=== PATIENT | female | born 1940 | race Caucasian/White ===

== ENCOUNTER 2017-08-11 02:01 | Inpatient (IN) | payer OTHER, MEDICARE, MEDICAID ==
[2017-08-11] VITALS (21 sets, daily range): BP systolic 110–188; BP diastolic 61–90; PULSE 46–80; RESP 16–18; TEMP 97.8–98.6; O2SAT 92–100
[~2017-08-11] VITALS: Ht 165.1 cm; Wt 80.9 kg
[2017-08-11] MEDS ORDERED: OMEP40CA2 PO (03:42)
[2017-08-11] MEDS ORDERED: LEVEMIR SQ ×2 (03:42)
[2017-08-11] MEDS ORDERED: NITR1SUB3 SL (03:42)
[2017-08-11] MEDS ORDERED: ALLO100T PO (03:42)
[2017-08-11] MEDS ORDERED: GLUC1000 PO (03:42)
[2017-08-11] MEDS ORDERED: FURO40TA PO (03:42)
[2017-08-11] MEDS ORDERED: SIMV10TA PO (03:42)
[2017-08-11] MEDS ORDERED: METO25TA6 PO (03:42)
[2017-08-11] MEDS ORDERED: ASPI81CH37 CHEW (03:42)
[2017-08-11 04:13] LABS: AUTOMATED NEUTROPHIL # 3.8 TH/MM3 (1.8-7.7); BASOPHIL # 0.1 TH/MM3 (0-0.2); BASOPHIL % 1.1 % (0.0-2.0); EOSINOPHIL # 0.4 TH/MM3 (0-0.4); EOSINOPHIL % 4.9 % (0.0-4.0); HEMATOCRIT 38.4 % (35.0-46.0); HEMO FLAGS DIFF FINAL; LYMPHOCYTE # 2.9 TH/MM3 (1.0-4.8); MEAN CELL VOLUME 94.8 FL (80.0-100.0); MEAN CORPUSCULAR HEMOGLOBIN 31.9 PG (27.0-34.0); MEAN CORPUSCULAR HGB CONC 33.6 % (32.0-36.0); MONO % 8.4 % (0.0-8.0); NEUT % 48.6 % (16.0-70.0); PLATELET COUNT 210 TH/MM3 (150-450); RED BLOOD COUNT 4.05 MIL/MM3 (4.00-5.30); RED CELL DISTRIBUTION WIDTH 14.1 % (11.6-17.2); WHITE BLOOD COUNT 7.9 TH/MM3 (4.0-11.0)
[2017-08-11 04:41] LABS: ALKALINE PHOSPHATASE 89 U/L (45-117); ALT (GPT) 29 U/L (10-53); TOTAL BILIRUBIN ADULT 0.3 MG/DL (0.2-1.0)
[2017-08-11] MEDS ORDERED: ASPIRIN 81 MG CHEW TAB CHEW ONE (04:45)
[2017-08-11 04:52] LABS: ANION GAP 7 MEQ/L (5-15); AST (GOT) 36 U/L (15-37); BICARBONATE 26.1 MEQ/L (21.0-32.0); BLOOD UREA NITROGEN 33 MG/DL (7-18); CHLORIDE 105 MEQ/L (98-107); GLOMERULAR FILTRATION RATE 23 ML/MIN (>89); POTASSIUM 3.7 MEQ/L (3.5-5.1); SODIUM (NA) 138 MEQ/L (136-145)
[2017-08-11] MEDS ORDERED: ACETAMINOPHEN 325 MG TAB PO PRN (05:00)
[2017-08-11] MEDS ORDERED: MORPHINE SULFATE 4 MG/ML INJ IV PUSH ONE (05:00)
[2017-08-11] MEDS ORDERED: SENNOSIDES 8.6 MG TAB PO PRN (05:00)
[2017-08-11] MEDS ORDERED: SODIUM CHLORIDE 0.9% FLUSH 10 ML FLUSH IV FLUSH PRN (05:00)
[2017-08-11] MEDS ORDERED: MORPHINE SULFATE 4 MG/ML INJ IV PUSH PRN (05:00)
[2017-08-11] MEDS ORDERED: ACETAMINOPHEN/HYDROcodone 325 MG/5 MG TAB PO PRN (05:00)
[2017-08-11] MEDS ORDERED: LACTULOSE SYRUP 20 GM/30 ML CUP PO PRN (05:00)
[2017-08-11] MEDS ORDERED: BISACODYL 10 MG SUPP RECTAL PRN (05:00)
[2017-08-11] MEDS ORDERED: ONDANSETRON HCL 4 MG/2 ML VIAL IVP PRN (05:00)
[2017-08-11] MEDS ORDERED: MAGNESIUM HYDROXIDE SUSP 30 ML CUP PO PRN (05:00)
[2017-08-11] MEDS: NITROGLYCERIN 0.4 MG SL 25 TABS/BTL SL PRN ×3 (05:01→05:28)
[2017-08-11] MEDS ORDERED: DEXTROSE 50% IN WATER 50 ML VIAL(D50) IV PUSH PRN (05:15)
[2017-08-11] MEDS ORDERED: NITROGLYCERIN 2% OINT 1 GM PACKET TOPICAL PRN (05:15)
[2017-08-11] MEDS ORDERED: GLUCAGON 1 MG/ML VIAL OTHER PRN (05:15)
--- NOTE | 2017-08-11 05:15 | HHI.HP ---
HPI Service [facility] Primary Care Physician Angel Ahumada M.D. Admission Diagnosis chest pain Diagnoses: (1) Chest pain Diagnosis: Principal (2) Elevated troponin Diagnosis: Principal (3) Renal insufficiency Diagnosis: Principal (4) HTN (hypertension) Diagnosis: Principal (5) DM (diabetes mellitus) Diagnosis: Principal Travel History International Travel<30 Days: No Contact w/Intl Traveler <30 Da: No Traveled to Known Affected Are: No History of Present Illness This is a 77-year-old female with a PMH of HTN, Hyperlipidemia, CAD s/p Cardiac Stent, h/o CVA and DM who was brought to the ER under [place] Act by Police after stating she didn't want to live anymore. Pt lives alone w/ , reportedly increasingly agitated/combative, pt states she wanted to get away and drove to the store and sat in her car for several hours. Family concerned and called 911 at which time pt stated she didn't want to live and placed under [place] Act. During that time, pt w/ complaints of substernal chest pain. No fever, chills, SOB or cough. While in ER, pt evaluated at length by ER physician, no suicidal ideation, Keating Act lifted. BP 160/77, HR 51, O2 sat 95 % on RA, Afebrile. CBC unremarkable. Creatinine 2.04, no previous labs for comparison. Troponin 0.11. EKG w/ no acute ischemia. Currently chest pain free. Review of Systems Except as stated in HPI: all other systems reviewed are Neg ROS: 14 point review of systems otherwise negative. Past Family Social History Past Medical History PMH: HTN, Hyperlipidemia, CAD s/p Cardiac Stent, h/o CVA and DM Past Surgical History PAST SURGICAL HISTORY: Cardiac Catheterization, Hysterectomy Allergies: Coded Allergies: No Known Allergies (Unverified , 08/11/17) Family History PAST FAMILY HISTORY: Reviewed. No h/o DM or CAD Social History PAST SOCIAL HISTORY: Negative for alcohol, tobacco or drugs. Physical Exam Vital Signs Vital Signs Date Time Temp Pulse Resp B/P (MAP) Pulse Ox O2 Delivery O2 Flow Rate FiO2 08/11/17 05:05 63 16 188/90 (122) 97 Room Air 08/11/17 02:58 97.8 51 16 160/77 (104) 95 Physical Exam PE: GENERAL: Pleasant elderly female in no acute distress. HEENT: PERRLA, EOMI. No scleral icterus or conjunctival pallor. No lid lag or facial droop. CARDIOVASCULAR: Regular rate and rhythm. No obvious murmurs to auscultation. No chest tenderness to palpation. RESPIRATORY: No obvious rhonchi or wheezing. Clear to auscultation. Breath sounds equal bilaterally. GASTROINTESTINAL: Abdomen soft, non-tender, nondistended. BS normal. MUSCULOSKELETAL: Extremities without clubbing, cyanosis, or edema. No obvious deformities. NEUROLOGICAL: Awake, alert and oriented x4. No focal neurologic deficits. Moving both upper and lower extremities spontaneously. Laboratory Laboratory Tests Test 08/11/17 03:55 White Blood Count 7.9 Red Blood Count 4.05 Hemoglobin 12.9 Hematocrit 38.4 Mean Corpuscular Volume 94.8 Mean Corpuscular Hemoglobin 31.9 Mean Corpuscular Hemoglobin Concent 33.6 Red Cell Distribution Width 14.1 Platelet Count 210 Mean Platelet Volume 8.6 Neutrophils (%) (Auto) 48.6 Lymphocytes (%) (Auto) 37.0 Monocytes (%) (Auto) 8.4 Eosinophils (%) (Auto) 4.9 Basophils (%) (Auto) 1.1 Neutrophils # (Auto) 3.8 Lymphocytes # (Auto) 2.9 Monocytes # (Auto) 0.7 Eosinophils # (Auto) 0.4 Basophils # (Auto) 0.1 CBC Comment DIFF FINAL Differential Comment Blood Urea Nitrogen 33 Creatinine 2.04 Random Glucose 176 Total Protein 7.6 Albumin 3.7 Calcium Level 8.6 Alkaline Phosphatase 89 Aspartate Amino Transf (AST/SGOT) 36 Alanine Aminotransferase (ALT/SGPT) 29 Total Bilirubin 0.3 Sodium Level 138 Potassium Level 3.7 Chloride Level 105 Carbon Dioxide Level 26.1 Anion Gap 7 Estimat Glomerular Filtration Rate 23 Troponin I 0.11 Result Diagram: 08/11/1735408/11/17354 Caprini VTE Risk Assessment Caprini VTE Risk Assessment: No/Low Risk (score <= 1) Caprini Risk Assessment Model Point Value = 1 Point Value = 2 Point Value = 3 Point Value = 5 Age 41-60 Minor surgery BMI > 25 kg/m2 Swollen legs Varicose veins or History of unexplained or recurrent spontaneous Oral contraceptives or hormone replacement Sepsis (< 1 month) Serious lung disease, including pneumonia (< 1 month) Abnormal pulmonary function Acute myocardial infarction Congestive heart failure (< 1 month) History of inflammatory bowel disease Medical patient at bed rest Age 61-74 Arthroscopic surgery Major open surgery (> 45 min) Laparoscopic surgery (> 45 min) Malignancy Confined to bed (> 72 hours) Immobilizing plaster cast Central venous access Age >= 75 History of VTE Family history of VTE Factor V Leiden Prothrombin [id number] Lupus anticoagulant Anticardiolipin antibodies Elevated serum homocysteine Heparin-induced thrombocytopenia Other congenital or acquired thrombophilia Stroke (< 1 month) Elective arthroplasty Hip, pelvis, or leg fracture Acute spinal cord injury (< 1 month) Prophylaxis Regimen Total Risk Factor Score Risk Level Prophylaxis Regimen 0-1 Low Early ambulation 2 Moderate Order ONE of the following: *Sequential Compression Device (SCD) *Heparin 5000 units SQ BID 3-4 Higher Order ONE of the following medications: *Heparin 5000 units SQ TID *Enoxaparin/Lovenox 40 mg SQ daily (WT < 150 kg, CrCl > 30 mL/min) *Enoxaparin/Lovenox 30 mg SQ daily (WT < 150 kg, CrCl > 10-29 mL/min) *Enoxaparin/Lovenox 30 mg SQ BID (WT < 150 kg, CrCl > 30 mL/min) AND/OR *Sequential Compression Device (SCD) 5 or more Highest Order ONE of the following medications: *Heparin 5000 units SQ TID (Preferred with Epidurals) *Enoxaparin/Lovenox 40 mg SQ daily (WT < 150 kg, CrCl > 30 mL/min) *Enoxaparin/Lovenox 30 mg SQ daily (WT < 150 kg, CrCl > 10-29 mL/min) *Enoxaparin/Lovenox 30 mg SQ BID (WT < 150 kg, CrCl > 30 mL/min) AND *Sequential Compression Device (SCD) Assessment and Plan Problem List: (1) Chest pain ICD Code: R07.9 - Chest pain, unspecified (2) Elevated troponin ICD Code: R74.8 - Abnormal levels of other serum enzymes (3) Renal insufficiency ICD Code: N28.9 - Disorder of kidney and ureter, unspecified (4) HTN (hypertension) ICD Code: I10 - Essential (primary) hypertension (5) DM (diabetes mellitus) ICD Code: E11.9 - Type 2 diabetes mellitus without complications Assessment and Plan A/P: 1. Chest Pain: acute onset of substernal chest pain, h/o CAD s/p multiple stents. Trop 0.11, EKG abnormal but no acute ischemia. Admit to [facility], check serial cardiac enzymes. Currently chest pain free, NTG/Morphine as needed. 2. Elevated Trop: Possibly related to renal dysfunction however R/o ACS, extensive cardiac history as above, Trop 0.11, will trend. Resume home ASA, Statin, Metoprolol. Check CXR. 3. Renal Insufficiency: Creatinine 2.04, no previous labs for comparison. Check U/a, IVF for hydration, repeat labs in am. Hold Lasix for now. 4. HTN: BP 160's, will monitor, resume home medications. 5. DM: Sliding scale w/ Accu-Cheks. Hold Metformin in light of renal insufficiency. 6. DVT Prophylaxis: Heparin sq 7. Social work for d/c planning as needed. 8. Case discussed w/ ER physician at length. Carla Nagel MD Aug 11, 2017 05:15
[2017-08-11] MEDS: SODIUM CHLOR 0.9% 1000 ML INJ 1,000 ML IV SCH ×3 (05:28→16:52)
--- NOTE | 2017-08-11 05:49 | RADRPT ---
EXAM DATE/TIME: 08/11/2017 05:08 [place] COMPARISON: No previous studies available for comparison. INDICATIONS : Chest pain. MEDICAL HISTORY : Diabetes mellitus type II. Hypertension Stroke. SURGICAL HISTORY : Right breast, tumor removal. ENCOUNTER: Initial ACUITY: 1 day PAIN SCORE: 7/10 LOCATION: Left chest FINDINGS: A single view of the chest demonstrates cardiomegaly. Minimal basilar atelectasis. No effusion. No pn eumothorax. Elevated right hemidiaphragm. CONCLUSION: 1. Cardiomegaly with minimal basilar atelectasis. Elevated right hemidiaphragm. Jun Garduno MD on August 11, 2017 at 5:45 Board Certified Radiologist. This report was verified electronically.
--- NOTE | 2017-08-11 07:05 | PD ---
HPI Chief Complaint: Psychiatric Symptoms Time Seen by Provider: 02:11 Travel History International Travel<30 days: No Contact w/Intl Traveler<30days: No Traveled to known affect area: No History of Present Illness HPI This is a 77-year-old female who has a history of coronary artery disease with multiple stents who presents to the emergency department under a [place] act. The patient's recently had a CABG and he has been having a very difficult time recovering. She says ever since then he's been a very angry man , he's been very difficult to interact with then he's very reactive and agitated at home. She says she got fed up with it today and she decided to leave. She went shopping and went to get something to eat and then decided to sleep in her car. After 3 hours her called the police and the police came to her car and picked her up. She did tell the police that she didn't want to live anymore. By that she mentioned she didn't want to live with her . She feels very frustrated with her situation. She says she doesn't want to kill herself, she loves her children and her grandchildren and she is looking forward to her grandchildren graduating. She just is very frustrated with the situation with her . She was initially taken to [facility]. At [facility] she developed chest discomfort in the center of her chest, constant, moderate severity with no associated nausea or vomiting. She does have a long history of heart disease. She says the chest pain persists in the emergency department here [facility] Past Medical History Cardiac Catheterization: Yes (5 stents) High Cholesterol: Yes Cerebrovascular Accident: Yes Diabetes: Yes Patient Takes Glucophage: No Hypertension: Yes Kidney Stones: Yes Myocardial Infarction: Yes Past Surgical History Hysterectomy: Yes Social History Alcohol Use: No Tobacco Use: No Substance Use: No Allergies-Medications (Allergen,Severity, Reaction): Coded Allergies: No Known Allergies (Unverified , 08/11/17) Reported Meds & Prescriptions Reported Meds & Active Scripts Active Reported Allopurinol 100 Mg Tab 100 Mg PO DAILY Aspirin Low Dose (Aspirin) 81 Mg Chew 81 Mg CHEW DAILY Omeprazole 40 Mg Cap 40 Mg PO DAILY Furosemide 40 Mg Tab 40 Mg PO DAILY Glucophage (Metformin HCl) 1,000 Mg Tab 1,000 Mg PO DAILY With a meal Levemir Inj (Insulin Detemir) 1,000 unit/ 10 ML Vial 35 Units SQ HS Do not mix with any other Insulin. Levemir Inj (Insulin Detemir) 1,000 unit/ 10 ML Vial 50 Units SQ DAILYAC Do not mix with any other Insulin. Metoprolol Succinate ER 24 HR (Metoprolol Succinate) 25 Mg Tab 12.5 Mg PO DAILY Nitroglycerin SL (Nitroglycerin) 0.4 Mg Subl 0.4 Mg SL DIRECTED PRN ONE TABLET UNDER THE TONGUE NEEDED FOR CHEST PAIN, MAY REPEAT EVERY FIVE MINUTES FOR A TOTAL OF 3 DOSES OR CALL 911 IF NO RELIEF Simvastatin 10 Mg Tab 10 Mg PO DAILY Review of Systems Except as stated in HPI: all other systems reviewed are Neg Physical Exam Narrative GENERAL:Well appearing, no acute distress SKIN: Focused skin assessment warm and dry. HEAD: Atraumatic. Normocephalic. EYES: Pupils equal and round. No injection or drainage. ENT: Moist mucous membranes NECK: Trachea midline. CARDIOVASCULAR: Regular rate and rhythm. No murmur appreciated. RESPIRATORY: Clear to auscultation. Breath sounds equal bilaterally. GASTROINTESTINAL: Abdomen soft, non-tender, nondistended. MUSCULOSKELETAL: No obvious deformities. NEUROLOGICAL: Awake and alert. No obvious cranial nerve deficits. Moving all extremities. PSYCHIATRIC: Appropriate mood and affect; insight and judgment normal. Data Data Last Documented VS Vital Signs Date Time Temp Pulse Resp B/P (MAP) Pulse Ox O2 Delivery O2 Flow Rate FiO2 08/11/17 02:58 97.8 51 16 160/77 (104) 95 Orders Orders Complete Blood Count With Diff (08/11/17 02:33) Comprehensive Metabolic Panel (08/11/17 02:33) Electrocardiogram (08/11/17 ) Troponin I (08/11/17 02:33) ^ Insert Iv (08/11/17 02:33) Aspirin Chew (Aspirin Chew) (08/11/17 04:45) Morphine Inj (Morphine Inj) (08/11/17 05:00) Nitroglycerin Sl (Nitrostat Sl) (08/11/17 05:00) Admit Order (Ed Use Only) (08/11/17 05:01) Chest, Single Ap (08/11/17 ) Urinalysis - C+S If Indicated (08/11/17 04:57) Place In Observation (08/11/17 ) Vital Signs (Adult) Q4H (08/11/17 04:57) Activity Oob With Assistance (08/11/17 04:57) Control Room Supervisor / Telemetry .CONTINUOUS (08/11/17 04:57) Intake + Output SOULEYMANE.QSHIFT (08/11/17 04:57) Diet Heart Healthy (08/11/17 Breakfast) Sodium Chlor 0.9% 1000 Ml Inj (Ns 1000 M (08/11/17 04:57) Sodium Chloride 0.9% Flush (Ns Flush) (08/11/17 05:00) Sodium Chloride 0.9% Flush (Ns Flush) (08/11/17 09:00) Ondansetron Inj (Zofran Inj) (08/11/17 05:00) Comprehensive Metabolic Panel (08/12/17 06:00) Complete Blood Count With Diff (08/12/17 06:00) Troponin I (08/11/17 10:00) Troponin I (08/11/17 16:00) Heparin Inj (Heparin Inj) (08/11/17 09:00) Acetaminophen (Tylenol) (08/11/17 05:00) Acetamin-Hydrocod 325-5 Mg ([place] 5-325 (08/11/17 05:00) Morphine Inj (Morphine Inj) (08/11/17 05:00) Docusate Sodium-Senna (Alice-Colace) (08/11/17 09:00) Magnesium Hydroxide Liq (Milk Of Magnesi (08/11/17 05:00) Sennosides (Senokot) (08/11/17 05:00) Bisacodyl Supp (Dulcolax Supp) (08/11/17 05:00) Lactulose Liq (Lactulose Liq) (08/11/17 05:00) Aspirin Ec (Ecotrin Ec) (08/11/17 09:00) Pravastatin (Pravachol) (08/11/17 09:00) Metoprolol Tartrate (Lopressor) (08/11/17 09:00) Labs Laboratory Tests Test 08/11/17 03:55 White Blood Count 7.9 TH/MM3 Red Blood Count 4.05 MIL/MM3 Hemoglobin 12.9 GM/DL Hematocrit 38.4 % Mean Corpuscular Volume 94.8 FL Mean Corpuscular Hemoglobin 31.9 PG Mean Corpuscular Hemoglobin Concent 33.6 % Red Cell Distribution Width 14.1 % Platelet Count 210 TH/MM3 Mean Platelet Volume 8.6 FL Neutrophils (%) (Auto) 48.6 % Lymphocytes (%) (Auto) 37.0 % Monocytes (%) (Auto) 8.4 % Eosinophils (%) (Auto) 4.9 % Basophils (%) (Auto) 1.1 % Neutrophils # (Auto) 3.8 TH/MM3 Lymphocytes # (Auto) 2.9 TH/MM3 Monocytes # (Auto) 0.7 TH/MM3 Eosinophils # (Auto) 0.4 TH/MM3 Basophils # (Auto) 0.1 TH/MM3 CBC Comment DIFF FINAL Differential Comment Blood Urea Nitrogen 33 MG/DL Creatinine 2.04 MG/DL Random Glucose 176 MG/DL Total Protein 7.6 GM/DL Albumin 3.7 GM/DL Calcium Level 8.6 MG/DL Alkaline Phosphatase 89 U/L Aspartate Amino Transf (AST/SGOT) 36 U/L Alanine Aminotransferase (ALT/SGPT) 29 U/L Total Bilirubin 0.3 MG/DL Sodium Level 138 MEQ/L Potassium Level 3.7 MEQ/L Chloride Level 105 MEQ/L Carbon Dioxide Level 26.1 MEQ/L Anion Gap 7 MEQ/L Estimat Glomerular Filtration Rate 23 ML/MIN Troponin I 0.11 NG/ML [facility] Medical Decision Making Medical Screen Exam Complete: Yes Emergency Medical Condition: Yes Interpretation(s) Afebrile, no tachycardia, hypertensive No leukocytosis Renal insufficiency Troponin is 0.11 EKG: Normal sinus rhythm, T-wave inversions in the lateral leads, type I second- degree AV block Chest x-ray: No acute process Differential Diagnosis Depression, adjustment reaction, acute coronary syndrome, stress cardiomyopathy Narrative Course This is a 77-year-old female who presents to the emergency department brought in under a [place] act by police because she was in her car. She reports that everything surrounding today was situational and she's trying to get away from her because he's been increasingly angry and they been fighting a lot. They've been together for 60 years and she says the last couple months ever since he had his heart surgery has been very hard on her. She said she spoke to her daughter who is in the [place] and she's traveling here today August 11 and will arrive in [place] at noon. I spoke to the patient's son who confirms this story and thinks his sister would be happy to belt picker their. He doesn't think his mother is suicidal, and thinks she just was trying to get away from her because she is frustrated and is having a hard time taking care of him. I don't think a Keating act on this patient is appropriate. I don't think she is depressed or suicidal and I think this all reflects an adjustment reaction. I lifted the patient's Keating act. Patient has a long history of coronary artery disease. She started to complain of chest pain at [facility] and then here. EKG does demonstrate some ischemic changes and I don't have an old comparison. Labs are obtained and her troponin is 0.11. She also has some renal insufficiency which may be the etiology but I think it's reasonable to observe the patient for serial cardiac enzymes given her long standing history and multiple stents. Physician Communication Physician Communication Discussed with Dr. Moerira Diagnosis Primary Impression: Chest pain Qualified Codes: R07.9 - Chest pain, unspecified Additional Impression: Adjustment reaction Qualified Codes: F43.20 - Adjustment disorder, unspecified Admitting Information Admitting Physician Requests: Mimi Darling MD Aug 11, 2017 07:05
--- NOTE | 2017-08-11 08:19 | EKG ---
Date Performed: 08/11/2017 Time Performed: 03:46:42 PTAGE: 77 years EKG: SINUS BRADYCARDIA WITH 2ND DEGREE AV BLOCK, MOBITZ TYPE I (WENCKEBACH) LEFT VENTRICULAR HYP ERTROPHY AND ST-T CHANGE ABNORMAL ECG NO PREVIOUS TRACING DOCTOR: Salazar Watson Interpretating Date/Time 08/11/2017 08:18:12
[2017-08-11] MEDS: INSULIN ASPART SUPPLEMENTAL SCALE SQ SCH ×4 (08:47→21:00)
[2017-08-11] MEDS ORDERED: METOPROLOL TARTRATE 25 MG TAB PO SCH (09:00)
[2017-08-11] MEDS ORDERED: HEPARIN SODIUM - SQ 10,000 UNITS/ML VIAL SQ SCH (09:00)
[2017-08-11] MEDS: SODIUM CHLORIDE 0.9% FLUSH 10 ML FLUSH IV FLUSH SCH ×2 (09:00→21:23)
[2017-08-11] MEDS ORDERED: [UNRECOGNIZED DRUG - OTHER] IV ONE (10:00)
[2017-08-11] MEDS: INSULIN DETEMIR 100 UNITS/ML VIAL SQ SCH ×2 (10:10→21:23)
[2017-08-11] MEDS: PANTOPRAZOLE SOD 40 MG DELAYED RELEASE TAB PO SCH (10:11)
[2017-08-11] MEDS: DOCUSATE SODIUM 50 MG/SENNA 8.6 MG TAB PO SCH ×2 (10:11→21:23)
[2017-08-11] MEDS: ASPIRIN EC 81 MG TABEC PO SCH (10:11)
[2017-08-11] MEDS: PRAVASTATIN SOD 40 MG TAB PO SCH (10:11)
[2017-08-11 11:24] LABS: HEMATOCRIT 37.3 % (35.0-46.0); MEAN CELL VOLUME 95.3 FL (80.0-100.0); MEAN CORPUSCULAR HEMOGLOBIN 32.5 PG (27.0-34.0); MEAN CORPUSCULAR HGB CONC 34.1 % (32.0-36.0); PLATELET COUNT 183 TH/MM3 (150-450); RED BLOOD COUNT 3.92 MIL/MM3 (4.00-5.30); REVIEW FLAG FINAL; WHITE BLOOD COUNT 6.6 TH/MM3 (4.0-11.0)
[2017-08-11 11:36] LABS: APTT (PATIENT) 25.5 SEC (24.3-30.1); PROTHROMBIN TIME - PATIENT 11.1 SEC (9.8-11.6)
[2017-08-11] MEDS: HEPARIN 25,000 UNITS/D5W 250ML IV PRN (12:19)
--- NOTE | 2017-08-11 13:27 | MB ---
cc: MUSHTAQ JOHN MD DATE OF CONSULTATION 08/11/17 REASON FOR CONSULTATION Chest pain with indeterminate troponin. HISTORY OF PRESENT ILLNESS The patient is a very pleasant 68-year-old woman with a history of complex coronary disease status post multiple prior stents. The patient lives with her and apparently her home situation has been very rough as the just underwent CABG and has been agitated and combative. The patient's initial labs were notable for a creatinine of 2.04 and a troponin of 0.11. She says she has been having intermittent chest pain for which she uses sublingual nitroglycerin initially with some relief, though the last episode took three nitroglycerin without relief and thus she presented to the emergency department. The patient is a little bit vague and I try to get a sense on whether she was really having significant chest pain or was distressed at being at home with her agitated . The patient has trouble giving a straight answer on this question. PAST MEDICAL HISTORY 1. Coronary artery disease status post five stents (per patient). 2. CVA. 3. Diabetes. 4. Hypertension. 5. Hyperlipidemia. 6. Obesity. MEDICATIONS Current medications: 1. Insulin. 2. Aspirin 81 milligrams daily. 3. Pravachol 40 milligrams. 4. Protonix 40 milligrams daily. ALLERGIES NO KNOWN DRUG ALLERGIES. PHYSICAL EXAMINATION VITAL SIGNS: Afebrile, pulse 51, blood pressure 119/66 down from 188/90, respiratory rate 16, satting 92 on room air. GENERAL: Pleasant obese woman in no distress. NECK: No JVD. LUNGS: Clear to auscultation bilaterally. CARDIOVASCULAR: Regular rate, rhythm. No murmurs appreciated. ABDOMEN: Benign. EXTREMITIES: No edema. LABORATORY DATA Sodium 138, potassium 3.7, chloride 105, bicarb 26.1, BUN 33, creatinine 2.04, glucose 176, troponin is 0.11, white count 7.9, hematocrit 38.4, platelets 210. CARDIOLOGY STUDIES EKG shows sinus rhythm with a second-degree type 1 AV block and anterolateral T-wave changes consistent with ischemia. IMPRESSION 1. Chest pain with elevated troponin. This is a difficult case as her troponin may simply be due to her poor renal function. However, her EKG is abnormal and she does have notable coronary disease. I am also reluctant to have her proceed directly to cardiac catheterization given her decreased renal function. She is currently getting hydrated. I think the best course of action is to finis her rule out of [place] as she is clinically stable without any current chest pain. Depending on the rest of her cardiac enzymes I would have her undergo either a nuclear stress test or potentially have her undergo a higher risk cardiac catheterization. 2. Thus her plan will depend on her lab work both on her cardiac enzymes and on how her renal function changes with hydration. Thank you again for the opportunity to participate in this patient's care. MD PRAVEEN Harris/KRISTINA /9:57 AM /1:11 PM
--- NOTE | 2017-08-11 15:09 | HHI.PR ---
Subjective Remarks Follow up for chest pain. The patient reports her chest pain has improved today , denies any currently but did have some intermittent squeezing/tight left anterior chest pains earlier this morning. Denies any shortness of breath or palpitations. Patient admits she has been under a lot of stress lately. Seen with multiple family members at bedside. The patient reports she's had 4 heart attacks, her last cardiac catheterization was back in 2008 and she has a total of 5 stents. Her procedures were mostly all done in [place]. 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 She did have a nuclear stress test done this past December [address] Dawood Calixto at [facility] in [place], [place]. The patient also reports that she has bad kidneys because she developed frequent kidney stones, and just recently passed a stone last week. She was also on a 4 day course of Levaquin because of cystitis, completed course earlier this week. Objective Vitals Vital Signs Date Time Temp Pulse Resp B/P (MAP) Pulse Ox O2 Delivery O2 Flow Rate FiO2 08/11/17 14:00 80 08/11/17 13:00 66 08/11/17 12:00 50 08/11/17 11:00 51 08/11/17 10:00 63 08/11/17 09:11 51 08/11/17 08:12 48 08/11/17 08:12 64 18 154/89 (110) 100 08/11/17 06:00 56 16 119/66 (83) 92 Room Air 08/11/17 05:26 46 110/61 (77) 95 Room Air 08/11/17 05:05 63 16 188/90 (122) 97 Room Air 08/11/17 02:58 97.8 51 16 160/77 (104) 95 Result Diagram: 08/11/17 1027 08/11/17 0355 Imaging Last Impressions Chest X-Ray 08/11/17 0000 Signed Impressions: Service Date/Time: Friday, August 11, 2017 05:08 - CONCLUSION: 1. Cardiomegaly with minimal basilar atelectasis. Elevated right hemidiaphragm. Jun Garduno MD Objective Remarks GENERAL: Well-nourished, well-developed pleasant female patient in [facility]. SKIN: Warm and dry. No rash. HEENT: Normocephalic. Atraumatic.Pupils equal and round. Mucous membranes pink and moist. CARDIOVASCULAR: Regular rate and rhythm. S1, S2 noted. No murmur appreciated. RESPIRATORY: No accessory muscle use. Clear to auscultation. Breath sounds equal bilaterally. GASTROINTESTINAL: Abdomen soft, non-tender, nondistended. Normoactive bowel sounds x4. MUSCULOSKELETAL: No obvious deformities. Extremities without clubbing, cyanosis , or edema. NEUROLOGICAL: Awake and alert. No obvious cranial nerve deficits. Motor grossly within normal limits. Normal speech. PSYCHIATRIC: Appropriate mood and affect; insight and judgment normal. Medications and IVs Current Medications Medications (Trade) Dose Ordered Sig/Barrett Route Start Time Stop Time Status Last Admin (Nitrostat Sl) 0.4 mg Q5M PRN SL 08/11/17 05:00 08/11/17 05:28 Sodium Chloride 1,000 ml @ 100 mls/hr Q10H IV 08/11/17 04:57 08/11/17 05:28 (NS Flush) 2 ml UNSCH PRN IV FLUSH 08/11/17 05:00 (NS Flush) 2 ml BID IV FLUSH 08/11/17 09:00 (Zofran Inj) 4 mg Q6H PRN IVP 08/11/17 05:00 (Tylenol) 650 mg Q6H PRN PO 08/11/17 05:00 ([place] 5-325 Mg) 1 tab Q4H PRN PO 08/11/17 05:00 (Morphine Inj) 2 mg Q3H PRN IV PUSH 08/11/17 05:00 (Alice-Colace) 1 tab BID PO 08/11/17 09:00 08/11/17 10:11 (Milk Of Magnesia Liq) 30 ml Q12H PRN PO 08/11/17 05:00 (Senokot) 17.2 mg Q12H PRN PO 08/11/17 05:00 (Dulcolax Supp) 10 mg DAILY PRN RECTAL 08/11/17 05:00 (Lactulose Liq) 30 ml DAILY PRN PO 08/11/17 05:00 (Ecotrin Ec) 81 mg DAILY PO 08/11/17 09:00 08/11/17 10:11 (Pravachol) 40 mg DAILY PO 08/11/17 09:00 08/11/17 10:11 (D50w (Vial) Inj) 50 ml UNSCH PRN IV PUSH 08/11/17 05:15 (Glucagon Inj) 1 mg UNSCH PRN OTHER 08/11/17 05:15 (NovoLOG SUPPLEMENTAL SCALE) 1 ACHS SLIDING SCALE SQ 08/11/17 08:00 08/11/17 12:00 (Levemir Inj) 35 units HS SQ 08/11/17 21:00 (Levemir Inj) 50 units DAILYAC SQ 08/11/17 08:00 08/11/17 10:10 (Protonix) 40 mg DAILY PO 08/11/17 09:00 08/11/17 10:11 (Nitroglycerin 2% Oint) 0.5 inch Q6HR PRN TOPICAL 08/11/17 05:15 (Heparin Inj) 5,000 units UNSCH PRN IV 08/11/17 16:00 (Heparin Inj) 2,500 units UNSCH PRN IV 08/11/17 16:00 Heparin Sodium/ Dextrose 250 ml @ 9 mls/hr TITRATE PRN IV 08/11/17 12:00 08/11/17 12:19 A/P Problem List: (1) Chest pain ICD Code: R07.9 - Chest pain, unspecified (2) Elevated troponin ICD Code: R74.8 - Abnormal levels of other serum enzymes (3) Renal insufficiency ICD Code: N28.9 - Disorder of kidney and ureter, unspecified (4) HTN (hypertension) ICD Code: I10 - Essential (primary) hypertension (5) DM (diabetes mellitus) ICD Code: E11.9 - Type 2 diabetes mellitus without complications Assessment and Plan 77-year-old female with a PMH of HTN, Hyperlipidemia, CAD s/p Cardiac Stent, h/ o CVA and DM who was brought to the ER under [place] by Police after stating she didn't want to live anymore. Pt lives alone w/ , reportedly increasingly agitated/combative, pt states she wanted to get away and drove to the store and sat in her car for several hours. Family concerned and called 911 at which time pt stated she didn't want to live and placed under [place], taken to [facility], and while there, complained of substernal chest pain. While in ER, pt evaluated at length by ER physician, no suicidal ideation, [place] lifted. Currently chest pain free. Chest Pain with Elevated Troponin: acute onset of substernal chest pain, h/o CAD s/p multiple stents. Trop 0.11, however could be due to renal dysfunction. EKG reviewed, shows AV block and anterolateral Twave changes, possible ischemia. CXR images reviewed, shows cardiomegaly, otherwise unremarkable. Admitted to [facility]. -Check serial cardiac enzymes and EKGs. -Continue nitro and IV morphine prn -Continue patient's home aspirin, statin; held patient's metoprolol with bradycardia -Check lipid panel and A1c -Start on heparin drip per cardiology -Consult cardiology, appreciate recommendations -Will try to obtain records of recent nuclear stress test in at [facility]. Renal Insufficiency: Creatinine 2.04, no previous labs for comparison. Check U /a. Give IVF for hydration, repeat labs in am. Hold Lasix for now. HTN: BP 160's, will monitor, resume home medications. DM: Sliding scale w/ Accu-Cheks. Continue patient's insulin. Hold Metformin in light of renal insufficiency. UTI: UA with +nitrites/leuks/WBCs/bacteria. Patient reports recently being on levaquin for cystitis. Will start on IV Rocephin for now and monitor urine culture. DVT Prophylaxis: on Heparin drip Problem Qualifiers (1) Chest pain: Qualified Codes: R07.9 - Chest pain, unspecified Loan Knapp PA-C Aug 11, 2017 15:09
[2017-08-11] MEDS ORDERED: HEPARIN SODIUM - IV 10,000 UNITS/10 ML VIAL IV PRN ×2 (16:00)
[2017-08-11 16:28] LABS: BACTERIA, URINE MOD /hpf; BLOOD, URINE SMALL (NEG); COMMENT (UR) CULTURE INDICATED; CULTURE IF INDICATED CULTURE INDICATED; GLUCOSE,URINE 300 mg/dL (NEG); KETONE, URINE NEG (NEG); NITRITE,URINE POS (NEG); PH, URINE 6.5 (5.0-8.5); SQUAMOUS EPITHELIAL CELL URINE 5 /hpf (0-5); URINE COLOR LIGHT-YELLOW (YELLW/STRAW)
[2017-08-11] MEDS: cefTRIAXone INJ 1,000 MG in SODIUM CHLORIDE 0.9% INJ 100 ML IV SCH (18:02)
[2017-08-11 18:57] LABS: APTT (PATIENT) 32.7 SEC (24.3-30.1)
[2017-08-12] VITALS (26 sets, daily range): BP systolic 124–159; BP diastolic 74–85; PULSE 40–78; RESP 16–20; TEMP 97.9–98.8; O2SAT 96–98
--- NOTE | 2017-08-12 01:19 | EKG ---
Date Performed: 08/11/2017 Time Performed: 16:03:46 PTAGE: 77 years EKG: Sinus bradycardia with second degree AV block Type I Ant/septal and lateral T wave changes may be due to myocardial ischemia Abnormal ECG PREVIOUS TRACING : 08/11/2017 09.19 No significant change from previous tracing noted. DOCTOR: Salazar Watson Interpretating Date/Time 08/12/2017 01:18:46
--- NOTE | 2017-08-12 01:26 | EKG ---
Date Performed: 08/11/2017 Time Performed: 09:19:50 PTAGE: 77 years EKG: Sinus bradycardia with second degree AV block Type I Prolonged QT interval Extensive ST-T c hanges may be due to myocardial ischemia Abnormal ECG PREVIOUS TRACING : 08/11/2017 03.46 No significant change from previous tracing noted. DOCTOR: Salazar Watson Interpretating Date/Time 08/12/2017 01:25:03
[2017-08-12 02:00] LABS: AUTOMATED NEUTROPHIL # 3.4 TH/MM3 (1.8-7.7); BASOPHIL # 0.1 TH/MM3 (0-0.2); EOSINOPHIL # 0.4 TH/MM3 (0-0.4); EOSINOPHIL % 4.9 % (0.0-4.0); HEMATOCRIT 37.2 % (35.0-46.0); HEMO FLAGS DIFF FINAL; LYMPH % 39.3 % (9.0-44.0); LYMPHOCYTE # 2.9 TH/MM3 (1.0-4.8); MEAN CELL VOLUME 95.3 FL (80.0-100.0); MEAN CORPUSCULAR HEMOGLOBIN 31.6 PG (27.0-34.0); MEAN CORPUSCULAR HGB CONC 33.2 % (32.0-36.0); MONO % 7.9 % (0.0-8.0); NEUT % 46.9 % (16.0-70.0); PLATELET COUNT 186 TH/MM3 (150-450); WHITE BLOOD COUNT 7.3 TH/MM3 (4.0-11.0)
[2017-08-12 02:15] LABS: APTT (PATIENT) 53.9 SEC (24.3-30.1)
[2017-08-12 02:23] LABS: ANION GAP 5 MEQ/L (5-15); AST (GOT) 28 U/L (15-37); BICARBONATE 29.5 MEQ/L (21.0-32.0); BLOOD UREA NITROGEN 28 MG/DL (7-18); CHLORIDE 109 MEQ/L (98-107); GLOMERULAR FILTRATION RATE 31 ML/MIN (>89); POTASSIUM 4.1 MEQ/L (3.5-5.1); SODIUM (NA) 143 MEQ/L (136-145)
[2017-08-12 02:31] LABS: ALKALINE PHOSPHATASE 72 U/L (45-117); ALT (GPT) 24 U/L (10-53); TOTAL BILIRUBIN ADULT 0.3 MG/DL (0.2-1.0)
[2017-08-12 07:50] LABS: APTT (PATIENT) 68.1 SEC (24.3-30.1)
[2017-08-12] MEDS: INSULIN ASPART SUPPLEMENTAL SCALE SQ SCH ×4 (08:00→23:38)
[2017-08-12] MEDS: INSULIN DETEMIR 100 UNITS/ML VIAL SQ SCH ×2 (08:00→23:37)
[2017-08-12] MEDS: PANTOPRAZOLE SOD 40 MG DELAYED RELEASE TAB PO SCH (09:50)
[2017-08-12] MEDS: DOCUSATE SODIUM 50 MG/SENNA 8.6 MG TAB PO SCH ×2 (09:50→21:00)
[2017-08-12] MEDS: PRAVASTATIN SOD 40 MG TAB PO SCH (09:51)
[2017-08-12] MEDS: SODIUM CHLORIDE 0.9% FLUSH 10 ML FLUSH IV FLUSH SCH ×2 (09:51→21:46)
[2017-08-12] MEDS: ASPIRIN EC 81 MG TABEC PO SCH (09:51)
--- NOTE | 2017-08-12 10:45 | PD.CARD.PN ---
Subjective Subjective Remarks Pt doing well, no further chest pain. Objective Medications Administered Medications Medications (Trade) Dose Ordered Sig/Barrett Route PRN Reason Start Time Stop Time Status Last Admin Dose Admin Nitroglycerin (Nitrostat Sl) 0.4 mg Q5M PRN SL CHEST PAIN 08/11/17 05:00 08/11/17 05:28 Sodium Chloride 1,000 ml @ 100 mls/hr Q10H IV 08/11/17 04:57 08/11/17 16:52 Sodium Chloride (NS Flush) 2 ml BID IV FLUSH 08/11/17 09:00 08/12/17 09:51 Senna/Docusate Sodium (Alice-Colace) 1 tab BID PO 08/11/17 09:00 08/12/17 09:50 Aspirin (Ecotrin Ec) 81 mg DAILY PO 08/11/17 09:00 08/12/17 09:51 Pravastatin Sodium (Pravachol) 40 mg DAILY PO 08/11/17 09:00 08/12/17 09:51 Insulin Aspart (NovoLOG SUPPLEMENTAL SCALE) 1 ACHS SLIDING SCALE SQ 08/11/17 08:00 08/11/17 21:00 Insulin Detemir (Levemir Inj) 35 units HS SQ 08/11/17 21:00 08/11/17 21:23 Insulin Detemir (Levemir Inj) 50 units DAILYAC SQ 08/11/17 08:00 08/12/17 08:00 Pantoprazole Sodium (Protonix) 40 mg DAILY PO 08/11/17 09:00 08/12/17 09:50 Heparin Sodium/ Dextrose 250 ml @ 9 mls/hr TITRATE PRN IV Ordered parameters 08/11/17 12:00 08/11/17 12:19 Ceftriaxone Sodium 1000 mg/ Sodium Chloride 100 ml @ 200 mls/hr Q24H IV 08/11/17 18:00 08/11/17 18:02 Vital Signs / I&O Vital Signs Date Time Temp Pulse Resp B/P (MAP) Pulse Ox O2 Delivery O2 Flow Rate FiO2 08/12/17 08:00 42 08/12/17 08:00 97.9 46 20 146/74 (98) 98 08/12/17 07:00 53 08/12/17 06:30 56 08/12/17 05:23 51 08/12/17 04:03 46 08/12/17 03:49 98.0 52 16 124/74 (91) 98 08/12/17 03:49 53 08/12/17 02:11 50 08/12/17 01:19 45 08/12/17 00:05 52 08/11/17 23:58 51 08/11/17 23:55 98.5 59 17 140/66 (90) 97 08/11/17 22:00 54 08/11/17 21:00 56 08/11/17 20:00 64 08/11/17 19:20 63 08/11/17 19:20 98.6 63 18 132/74 (93) 95 08/11/17 18:00 58 08/11/17 17:00 65 08/11/17 16:00 78 08/11/17 15:00 98.0 69 16 154/82 (106) 97 08/11/17 15:00 71 08/11/17 14:00 80 08/11/17 13:00 66 08/11/17 12:00 50 08/11/17 11:00 51 08/11/17 11:00 98.2 62 17 150/90 (110) 96 I/O 08/11/17 08/11/17 08/11/17 08/12/17 08/12/17 08/12/17 07:00 15:00 23:00 07:00 15:00 23:00 Intake Total 2074 ml 1071 ml Output Total 1700 ml 500 ml Balance 374 ml 571 ml Intake Oral 720 ml 240 ml IV Total 1354 ml 831 ml Output Urine Total 1700 ml 500 ml Physical Exam GENERAL: This is a well-nourished, well-developed patient, in no apparent distress. CARDIOVASCULAR: Regular rate and rhythm without murmurs, gallops, or rubs. RESPIRATORY: Clear to auscultation. Breath sounds equal bilaterally. No wheezes , rales, or rhonchi. GASTROINTESTINAL: Abdomen soft, non-tender, nondistended. Normal active bowel sounds MUSCULOSKELETAL: Extremities without clubbing, cyanosis, or edema. NEURO: Alert & Oriented x4 to person, place, time, situation. Moves all ext x4 Laboratory Laboratory Tests Test 08/11/17 13:10 08/11/17 16:00 08/11/17 18:07 08/12/17 01:47 Troponin I 0.14 NG/ML 0.18 NG/ML Urine Color LIGHT-YELLOW Urine Turbidity CLOUDY Urine pH 6.5 Urine Specific [place] 1.016 Urine Protein TRACE mg/dL Urine Glucose (UA) 300 mg/dL Urine Ketones NEG mg/dL Urine Occult Blood SMALL Urine Nitrite POS Urine Bilirubin NEG Urine Urobilinogen LESS THAN 2.0 MG/DL Urine Leukocyte Esterase LARGE Urine RBC 3 /hpf Urine WBC /hpf Urine WBC Clumps MANY Urine Squamous Epithelial Cells 5 /hpf Urine Bacteria MOD /hpf Microscopic Urinalysis Comment CULTURE INDICATED Activated Partial Thromboplast Time 32.7 SEC 53.9 SEC White Blood Count 7.3 TH/MM3 Red Blood Count 3.90 MIL/MM3 Hemoglobin 12.3 GM/DL Hematocrit 37.2 % Mean Corpuscular Volume 95.3 FL Mean Corpuscular Hemoglobin 31.6 PG Mean Corpuscular Hemoglobin Concent 33.2 % Red Cell Distribution Width 14.0 % Platelet Count 186 TH/MM3 Mean Platelet Volume 8.7 FL Neutrophils (%) (Auto) 46.9 % Lymphocytes (%) (Auto) 39.3 % Monocytes (%) (Auto) 7.9 % Eosinophils (%) (Auto) 4.9 % Basophils (%) (Auto) 1.0 % Neutrophils # (Auto) 3.4 TH/MM3 Lymphocytes # (Auto) 2.9 TH/MM3 Monocytes # (Auto) 0.6 TH/MM3 Eosinophils # (Auto) 0.4 TH/MM3 Basophils # (Auto) 0.1 TH/MM3 CBC Comment DIFF FINAL Differential Comment Blood Urea Nitrogen 28 MG/DL Creatinine 1.60 MG/DL Random Glucose 158 MG/DL Total Protein 6.7 GM/DL Albumin 3.1 GM/DL Calcium Level 8.2 MG/DL Alkaline Phosphatase 72 U/L Aspartate Amino Transf (AST/SGOT) 28 U/L Alanine Aminotransferase (ALT/SGPT) 24 U/L Total Bilirubin 0.3 MG/DL Sodium Level 143 MEQ/L Potassium Level 4.1 MEQ/L Chloride Level 109 MEQ/L Carbon Dioxide Level 29.5 MEQ/L Anion Gap 5 MEQ/L Estimat Glomerular Filtration Rate 31 ML/MIN Test 08/12/17 07:17 Activated Partial Thromboplast Time 68.1 SEC Imaging Last Impressions Chest X-Ray 08/11/17 0000 Signed Impressions: Service Date/Time: Friday, August 11, 2017 05:08 - CONCLUSION: 1. Cardiomegaly with minimal basilar atelectasis. Elevated right hemidiaphragm. Jun Garduno MD Assessment and Plan Problem List: (1) NSTEMI (non-ST elevation myocardial infarction) ICD Codes: I21.4 - Non-ST elevation (NSTEMI) myocardial infarction Plan: Troponin increased while Cr. decreased making me more suspicious of a true NSTEMI; continue medical mgt for now, Dr. Watson will evaluate for possible cath. (2) Chest pain ICD Codes: R07.9 - Chest pain, unspecified Plan: Improved currently (3) Renal insufficiency ICD Codes: N28.9 - Disorder of kidney and ureter, unspecified Plan: Improving w/ hydration, I did discuss risks of cath w/ regards to renal fxn w/ pt and daughter, they understand; continue hydration. (4) CAD (coronary artery disease) ICD Codes: I25.10 - Atherosclerotic heart disease of [place] coronary artery without angina pectoris Plan: Hx of 5 stents per pt, last cath reportedly (5) Bradycardia ICD Codes: R00.1 - Bradycardia, unspecified Plan: asymptomatic, dipping into high 30s while awake, per nursing, holding beta sherley thusly Problem Qualifiers (1) Chest pain: Qualified Codes: R07.9 - Chest pain, unspecified Javy Robledo MD Aug 12, 2017 10:45
[2017-08-12] MEDS ORDERED: DIAZEPAM 10 MG TAB PO SCH (12:45)
[2017-08-12] MEDS ORDERED: diphenhydrAMINE HCL 50 MG CAP PO SCH (12:45)
[2017-08-12] MEDS: SODIUM CHLOR 0.9% 1000 ML INJ 1,000 ML IV SCH ×4 (12:47→21:50)
[2017-08-12] MEDS: HEPARIN 25,000 UNITS/D5W 250ML IV PRN (12:52)
--- NOTE | 2017-08-12 13:14 | RADRPT ---
EXAM DATE/TIME: 08/12/2017 11:46 [facility] COMPARISON: No previous studies available for comparison. INDICATIONS : Increased BUN/Creatnine. MEDICAL HISTORY : Stroke. Myocardial infarction. Hypercholesterolemia. Varicose veins. Hypertension. Kidney stones. Lisy betes. SURGICAL HISTORY : Hysterectomy. Cardiac catheterization. Bladder surgery. ENCOUNTER: Initial ACUITY: 1 day PAIN SCORE: 2/10 LOCATION: Bilateral flank MEASUREMENTS: RIGHT KIDNEY: 9.2 x 3.7 x 4.4 cm LEFT KIDNEY: 9.5 x 3.6 x 4.5 cm FINDINGS: RIGHT KIDNEY: Renal cortex is normal in thickness and echotexture. No hydronephrosis, or mass. 3 mm echogenic area mid kidney could be a small stone. LEFT KIDNEY: Renal cortex is normal in thickness and echotexture. No hydronephrosis, or mass. 3 mm echogenic area lower pole left kidney could be a small stone BLADDER: Within normal limits given the degree of distension. CONCLUSION: Question of small stones bilaterally. No evidence of acute obstruction. Richie Shahid MD on August 12, 2017 at 13:11 Board Certified Radiologist. This report was verified electronically.
--- NOTE | 2017-08-12 13:19 | MB ---
cc: CHASE SARAVIA DATE OF CONSULTATION: 08/12/2017 REASON FOR CONSULTATION: Cardiac catheterization. HISTORY OF PRESENT ILLNESS The patient is a very pleasant 77-year-old [place] female with a history of coronary disease, hypertension, diabetes, hyperlipidemia, CVA, who presented to the hospital with chest pain. The patient states for the past 8 weeks she has been having progressively worsening dyspnea on exertion. In the last week or so she has barely been able to walk across the room without considerable dyspnea. About two or three days ago she also began to experience intermittent substernal chest discomfort associated with shortness of breath without nausea or diaphoresis. She has been taking nitroglycerin with relief of the symptoms but on the day of admission she had to take three nitroglycerin. Since coming into the hospital she has had no further chest discomfort. She also denies dizziness, syncope, near-syncope, palpitations, pedal edema, paroxysmal nocturnal dyspnea. PAST MEDICAL HISTORY: 1. Coronary artery disease, status post five stents, the first one in the , the last one in [place] in 2008. 2. History of CVA. 3. Diabetes. 4. Hyperlipidemia. 5. Hypertension. PAST SURGICAL HISTORY: 1. Hysterectomy. 2. Appendectomy. 3. Lower extremity vein stripping. CARDIAC MEDICATIONS AT HOME: 1. Simvastatin 10 milligrams qd. 2. Metoprolol succinate 12.5 milligrams qd. 3. Furosemide 40 milligrams qd. 4. Aspirin 81 milligrams qd. ALLERGIES: NO KNOWN DRUG ALLERGIES. FAMILY HISTORY: Noncontributory. SOCIAL HISTORY: The patient has never smoked cigarettes although she has considerable exposure to second hand smoke. She denies alcohol abuse. REVIEW OF SYSTEMS: As in the history of present illness, otherwise negative or noncontributory. She also denies headache, abdominal pain, melena, bright red blood per rectum, fevers, cough, rarely she experiences mild dyspepsia. PHYSICAL EXAMINATION: VITAL SIGNS: Blood pressure 146/74 with a pulse of 46, respirations 20. GENERAL: In general she is a well-developed, well-nourished [place] female in no acute distress. HEENT examination: Jugular venous pressure is normal. Carotid pulses are 2+ bilaterally and without bruits. CHEST: Examination of the chest reveals clear lung meyers. CARDIAC: On cardiac examination she has a bradycardic regular rhythm without S3-S4 or murmur. ABDOMEN: On abdominal examination she has a soft, nontender abdomen. Bowel sounds are present. There is no definite hepatosplenomegaly. EXTREMITIES: Examination of extremities reveals no clubbing, cyanosis or edema. Peripheral pulses are normal throughout. LABORATORY DATA: Laboratory data includes WBC 7.3, hemoglobin 12.3, platelets 186, potassium 4.1, BUN 28, creatinine 1.60, troponin 0.18. Chest x-ray: Shows no acute disease. EKG shows sinus bradycardia with second-degree AV block type 1, anteroseptal and lateral T-wave changes consider ischemia. IMPRESSION Abnormal troponin levels, symptoms most suggestive of unstable angina in this 77-year-old [facility] female with history of coronary artery disease status post a number of percutaneous coronary interventions the last one in 2008, history of hypertension, diabetes, hyperlipidemia, CVA. I have been asked to see the patient for possible cardiac catheterization. At this point I would agree with the need for cardiac catheterization in light of her worsening symptoms. She has also had progressively worsening and fairly severe dyspnea on exertion with no other signs or symptoms of congestive heart failure. EKGs do show anterior and lateral T-wave changes suggestive of ischemia. Although she has renal insufficiency, her renal indices have been improving with concomitant increases in her troponin level. The potential risks of cardiac catheterization have been outlined to the patient including but not limited to , myocardial infarction, stroke, arrhythmia, bleeding, infection, renal failure. She agrees to proceed. RECOMMENDATIONS 1. Cardiac catheterization tomorrow. Will try to minimize her dye load. 2. No beta sherley at this time given her relatively low heart rates. 3. Continue heparin drip, aspirin, and nitro paste. Salazar Saravia MD Taisha/NICOLE /12:32 PM /1:07 PM NICOLA
--- NOTE | 2017-08-12 13:32 | HHI.PR ---
Subjective Remarks denies cp/sob Objective Vitals Vital Signs Date Time Temp Pulse Resp B/P (MAP) Pulse Ox O2 Delivery O2 Flow Rate FiO2 08/12/17 13:02 52 08/12/17 12:00 68 08/12/17 11:00 60 08/12/17 11:00 98.8 60 20 159/78 (105) 98 08/12/17 10:00 48 08/12/17 09:00 40 08/12/17 08:00 42 08/12/17 08:00 97.9 46 20 146/74 (98) 98 08/12/17 07:00 53 08/12/17 06:30 56 08/12/17 05:23 51 08/12/17 04:03 46 08/12/17 03:49 98.0 52 16 124/74 (91) 98 08/12/17 03:49 53 08/12/17 02:11 50 08/12/17 01:19 45 08/12/17 00:05 52 08/11/17 23:58 51 08/11/17 23:55 98.5 59 17 140/66 (90) 97 08/11/17 22:00 54 08/11/17 21:00 56 08/11/17 20:00 64 08/11/17 19:20 63 08/11/17 19:20 98.6 63 18 132/74 (93) 95 08/11/17 18:00 58 08/11/17 17:00 65 08/11/17 16:00 78 08/11/17 15:00 98.0 69 16 154/82 (106) 97 08/11/17 15:00 71 08/11/17 14:00 80 I/O 08/11/17 08/11/17 08/11/17 08/12/17 08/12/17 08/12/17 07:00 15:00 23:00 07:00 15:00 23:00 Intake Total 2074 ml 1071 ml Output Total 1700 ml 500 ml Balance 374 ml 571 ml Intake Oral 720 ml 240 ml IV Total 1354 ml 831 ml Output Urine Total 1700 ml 500 ml Result Diagram: 08/12/17 0147 08/12/17 0147 Imaging Last Impressions Chest X-Ray 08/11/17 0000 Signed Impressions: Service Date/Time: Friday, August 11, 2017 05:08 - CONCLUSION: 1. Cardiomegaly with minimal basilar atelectasis. Elevated right hemidiaphragm. Jun Garduno MD Objective Remarks GENERAL: Well-nourished, well-developed pleasant female patient in NAD. somnolent. SKIN: Warm and dry. No rash. HEENT: Normocephalic. Atraumatic.Pupils equal and round. Mucous membranes pink and moist. CARDIOVASCULAR: Regular rate and rhythm. S1, S2 noted. No murmur appreciated. RESPIRATORY: No accessory muscle use. Clear to auscultation. Breath sounds equal bilaterally. GASTROINTESTINAL: Abdomen soft, non-tender, nondistended. Normoactive bowel sounds x4. MUSCULOSKELETAL: No obvious deformities. Extremities without clubbing, cyanosis , or edema. NEUROLOGICAL: Awake and alert. No obvious cranial nerve deficits. Motor grossly within normal limits. Normal speech. PSYCHIATRIC: Patient has a flat affect. Medications and IVs Current Medications Medications (Trade) Dose Ordered Sig/Barrett Route Start Time Stop Time Status Last Admin (Nitrostat Sl) 0.4 mg Q5M PRN SL 08/11/17 05:00 08/11/17 05:28 Sodium Chloride 1,000 ml @ 100 mls/hr Q10H IV 08/11/17 04:57 08/12/17 12:47 (NS Flush) 2 ml UNSCH PRN IV FLUSH 08/11/17 05:00 (NS Flush) 2 ml BID IV FLUSH 08/11/17 09:00 08/12/17 09:51 (Zofran Inj) 4 mg Q6H PRN IVP 08/11/17 05:00 (Tylenol) 650 mg Q6H PRN PO 08/11/17 05:00 ([place] 5-325 Mg) 1 tab Q4H PRN PO 08/11/17 05:00 (Morphine Inj) 2 mg Q3H PRN IV PUSH 08/11/17 05:00 (Alice-Colace) 1 tab BID PO 08/11/17 09:00 08/12/17 09:50 (Milk Of Magnesia Liq) 30 ml Q12H PRN PO 08/11/17 05:00 (Senokot) 17.2 mg Q12H PRN PO 08/11/17 05:00 (Dulcolax Supp) 10 mg DAILY PRN RECTAL 08/11/17 05:00 (Lactulose Liq) 30 ml DAILY PRN PO 08/11/17 05:00 (Ecotrin Ec) 81 mg DAILY PO 08/11/17 09:00 08/12/17 09:51 (Pravachol) 40 mg DAILY PO 08/11/17 09:00 08/12/17 09:51 (D50w (Vial) Inj) 50 ml UNSCH PRN IV PUSH 08/11/17 05:15 (Glucagon Inj) 1 mg UNSCH PRN OTHER 08/11/17 05:15 (NovoLOG SUPPLEMENTAL SCALE) 1 ACHS SLIDING SCALE SQ 08/11/17 08:00 08/12/17 12:00 (Levemir Inj) 35 units HS SQ 08/11/17 21:00 08/11/17 21:23 (Levemir Inj) 50 units DAILYAC SQ 08/11/17 08:00 08/12/17 08:00 (Protonix) 40 mg DAILY PO 08/11/17 09:00 08/12/17 09:50 (Nitroglycerin 2% Oint) 0.5 inch Q6HR PRN TOPICAL 08/11/17 05:15 (Heparin Inj) 5,000 units UNSCH PRN IV 08/11/17 16:00 (Heparin Inj) 2,500 units UNSCH PRN IV 08/11/17 16:00 Heparin Sodium/ Dextrose 250 ml @ 9 mls/hr TITRATE PRN IV 08/11/17 12:00 08/12/17 12:52 Ceftriaxone Sodium 1000 mg/ Sodium Chloride 100 ml @ 200 mls/hr Q24H IV 08/11/17 18:00 08/11/17 18:02 Sodium Chloride 1,000 ml @ 100 mls/hr Q10H IV 08/12/17 12:37 08/17/17 12:36 (Benadryl) 50 mg COLLEGE COACH PO 08/12/17 12:45 08/16/17 12:44 (Valium) 10 mg COLLEGE COACH PO 08/12/17 12:45 08/16/17 12:44 Urinary Catheter: No Vascular Central Line Catheter: No A/P Problem List: (1) Chest pain ICD Code: R07.9 - Chest pain, unspecified (2) Elevated troponin ICD Code: R74.8 - Abnormal levels of other serum enzymes (3) Renal insufficiency ICD Code: N28.9 - Disorder of kidney and ureter, unspecified (4) HTN (hypertension) ICD Code: I10 - Essential (primary) hypertension (5) DM (diabetes mellitus) ICD Code: E11.9 - Type 2 diabetes mellitus without complications Assessment and Plan 77-year-old female with a PMH of HTN, Hyperlipidemia, CAD s/p Cardiac Stent, h/ o CVA and DM who was brought to the ER under [place] by Police after stating she didn't want to live anymore. Pt lives alone w/ , reportedly increasingly agitated/combative, pt states she wanted to get away and drove to the store and sat in her car for several hours. Family concerned and called 911 at which time pt stated she didn't want to live and placed under [place], taken to [facility], and while there, complained of substernal chest pain. While in ER, pt evaluated at length by ER physician, no suicidal ideation, [place] Act lifted. Currently chest pain free. NSTEMI: acute onset of substernal chest pain, h/o CAD s/p multiple stents. Trop 0.11, however could be due to renal dysfunction. EKG reviewed, shows AV block and anterolateral Twave changes, possible ischemia. CXR images reviewed, shows cardiomegaly, otherwise unremarkable. Admitted to [facility]. The patient was started on a heparin drip 08/12 cardiology consulted, the patient seen by Dr. Robledo. Cardiac enzymes monitored and slowly trending up from 0.11 - 0.18. The patient will be evaluated by Dr. Watson for cardiac catheterization. The patient is currently chest pain-free. Renal Insufficiency: Creatinine 2.04, no previous labs for comparison. Check U /a. Give IVF for hydration, repeat labs in am. Hold Lasix for now. HTN: BP 160's, will monitor, resume home medications. DM: Sliding scale w/ Accu-Cheks. Continue patient's insulin. Hold Metformin in light of renal insufficiency. Escherichia coli UTI: UA with +nitrites/leuks/WBCs/bacteria and urine culture growing Escherichia coli. Patient reports recently being on Levaquin for cystitis. Continue IV Rocephin for now and monitor urine culture. DVT Prophylaxis: on Heparin drip Discharge Planning For cardiac catheterization tomorrow. Problem Qualifiers (1) Chest pain: Qualified Codes: R07.9 - Chest pain, unspecified Giancarlo Dueñas MD Aug 12, 2017 13:32
[2017-08-12] MEDS: cefTRIAXone INJ 1,000 MG in SODIUM CHLORIDE 0.9% INJ 100 ML IV SCH (17:03)
[2017-08-12 17:15] LABS: APTT (PATIENT) 51.3 SEC (24.3-30.1)
[2017-08-13] VITALS (25 sets, daily range): BP systolic 143–161; BP diastolic 75–90; PULSE 43–76; RESP 16–20; TEMP 97.9–98.6; O2SAT 97–99
[2017-08-13] MEDS: SODIUM CHLOR 0.9% 1000 ML INJ 1,000 ML IV SCH (05:53)
[2017-08-13 07:38] LABS: APTT (PATIENT) 58.9 SEC (24.3-30.1)
[2017-08-13 07:59] LABS: POTASSIUM 4.1 MEQ/L (3.5-5.1)
[2017-08-13] MEDS: INSULIN DETEMIR 100 UNITS/ML VIAL SQ SCH ×2 (08:00→21:00)
[2017-08-13] MEDS: INSULIN ASPART SUPPLEMENTAL SCALE SQ SCH ×4 (08:00→21:00)
[2017-08-13] MEDS: PRAVASTATIN SOD 40 MG TAB PO SCH (08:52)
[2017-08-13] MEDS: PANTOPRAZOLE SOD 40 MG DELAYED RELEASE TAB PO SCH (08:52)
[2017-08-13] MEDS: SODIUM CHLORIDE 0.9% FLUSH 10 ML FLUSH IV FLUSH SCH ×2 (08:52→21:17)
[2017-08-13] MEDS: ASPIRIN EC 81 MG TABEC PO SCH (08:52)
[2017-08-13] MEDS: DOCUSATE SODIUM 50 MG/SENNA 8.6 MG TAB PO SCH ×2 (08:52→21:00)
--- NOTE | 2017-08-13 09:21 | PD.CARD.PN ---
Subjective Subjective Remarks Pt doing well, no further chest pain Objective Medications Administered Medications Medications (Trade) Dose Ordered Sig/Barrett Route PRN Reason Start Time Stop Time Status Last Admin Dose Admin Nitroglycerin (Nitrostat Sl) 0.4 mg Q5M PRN SL CHEST PAIN 08/11/17 05:00 08/11/17 05:28 Sodium Chloride 1,000 ml @ 100 mls/hr Q10H IV 08/11/17 04:57 08/13/17 05:53 Sodium Chloride (NS Flush) 2 ml BID IV FLUSH 08/11/17 09:00 08/13/17 08:52 Senna/Docusate Sodium (Alice-Colace) 1 tab BID PO 08/11/17 09:00 08/12/17 09:50 Aspirin (Ecotrin Ec) 81 mg DAILY PO 08/11/17 09:00 08/13/17 08:52 Pravastatin Sodium (Pravachol) 40 mg DAILY PO 08/11/17 09:00 08/13/17 08:52 Insulin Aspart (NovoLOG SUPPLEMENTAL SCALE) 1 ACHS SLIDING SCALE SQ 08/11/17 08:00 08/12/17 23:38 Insulin Detemir (Levemir Inj) 35 units HS SQ 08/11/17 21:00 08/12/17 23:37 Insulin Detemir (Levemir Inj) 50 units DAILYAC SQ 08/11/17 08:00 08/12/17 08:00 Pantoprazole Sodium (Protonix) 40 mg DAILY PO 08/11/17 09:00 08/13/17 08:52 Heparin Sodium/ Dextrose 250 ml @ 9 mls/hr TITRATE PRN IV Ordered parameters 08/11/17 12:00 08/12/17 12:52 Ceftriaxone Sodium 1000 mg/ Sodium Chloride 100 ml @ 200 mls/hr Q24H IV 08/11/17 18:00 08/12/17 17:03 Vital Signs / I&O Vital Signs Date Time Temp Pulse Resp B/P (MAP) Pulse Ox O2 Delivery O2 Flow Rate FiO2 08/13/17 07:35 98.5 50 18 150/80 (103) 98 08/13/17 07:00 60 08/13/17 06:00 52 08/13/17 05:00 48 08/13/17 04:50 43 16 153/75 (101) 99 08/13/17 04:00 48 08/13/17 03:00 48 08/13/17 02:00 52 08/13/17 01:00 52 08/13/17 00:00 58 08/12/17 23:30 61 18 158/80 (106) 96 08/12/17 23:00 64 08/12/17 22:00 64 08/12/17 21:00 64 08/12/17 20:00 78 08/12/17 19:30 98.4 66 18 156/85 (108) 98 08/12/17 19:00 72 08/12/17 18:00 60 08/12/17 17:00 66 08/12/17 16:00 52 08/12/17 15:00 66 08/12/17 15:00 98.4 60 18 159/83 (108) 98 08/12/17 14:00 50 08/12/17 13:02 52 08/12/17 12:00 68 08/12/17 11:00 60 08/12/17 11:00 98.8 60 20 159/78 (105) 98 08/12/17 10:00 48 I/O 08/12/17 08/12/17 08/12/17 08/13/17 08/13/17 08/13/17 07:00 15:00 23:00 07:00 15:00 23:00 Intake Total 1071 ml 1000 ml 1300 ml Output Total 500 ml 700 ml Balance 571 ml 1000 ml 600 ml Intake Oral 240 ml 300 ml IV Total 831 ml 1000 ml 1000 ml Output Urine Total 500 ml 700 ml # Bowel Movements 1 Physical Exam GENERAL: This is a well-nourished, well-developed patient, in no apparent distress. CARDIOVASCULAR: Regular rate and rhythm without murmurs, gallops, or rubs. RESPIRATORY: Clear to auscultation. Breath sounds equal bilaterally. No wheezes , rales, or rhonchi. GASTROINTESTINAL: Abdomen soft, non-tender, nondistended. Normal active bowel sounds MUSCULOSKELETAL: Extremities without clubbing, cyanosis, or edema. NEURO: Alert & Oriented x4 to person, place, time, situation. Moves all ext x4 Laboratory Laboratory Tests Test 08/12/17 16:49 08/13/17 05:55 Activated Partial Thromboplast Time 51.3 SEC 58.9 SEC Blood Urea Nitrogen 19 MG/DL Creatinine 1.45 MG/DL Random Glucose 156 MG/DL Calcium Level 8.6 MG/DL Sodium Level 142 MEQ/L Potassium Level 4.1 MEQ/L Chloride Level 108 MEQ/L Carbon Dioxide Level 26.0 MEQ/L Anion Gap 8 MEQ/L Estimat Glomerular Filtration Rate 35 ML/MIN Imaging Last Impressions Renal Ultrasound 08/12/17 0000 Signed Impressions: Service Date/Time: Saturday, August 12, 2017 11:46 - CONCLUSION: Question of small stones bilaterally. No evidence of acute obstruction. Richie Shahid MD Chest X-Ray 08/11/17 0000 Signed Impressions: Service Date/Time: Friday, August 11, 2017 05:08 - CONCLUSION: 1. Cardiomegaly with minimal basilar atelectasis. Elevated right hemidiaphragm. Jun Garduno MD Assessment and Plan Problem List: (1) NSTEMI (non-ST elevation myocardial infarction) ICD Codes: I21.4 - Non-ST elevation (NSTEMI) myocardial infarction Plan: Troponin increased while Cr. decreased making me more suspicious of a true NSTEMI; continue medical mgt for now, Dr. Watson will cath later today (2) Chest pain ICD Codes: R07.9 - Chest pain, unspecified Plan: Improved currently (3) Renal insufficiency ICD Codes: N28.9 - Disorder of kidney and ureter, unspecified Plan: Improving w/ hydration, I did discuss risks of cath w/ regards to renal fxn w/ pt and daughter, they understand; continue hydration. (4) CAD (coronary artery disease) ICD Codes: I25.10 - Atherosclerotic heart disease of [place] coronary artery without angina pectoris Plan: Hx of 5 stents per pt, last cath reportedly (5) Bradycardia ICD Codes: R00.1 - Bradycardia, unspecified Plan: asymptomatic, dipping into high 30s while awake, per nursing, holding beta sherley thusly Problem Qualifiers (1) Chest pain: Qualified Codes: R07.9 - Chest pain, unspecified Javy Robledo MD Aug 13, 2017 09:21
[2017-08-13] MEDS ORDERED: IOHEXOL 350 MG/ML 100 ML BTL (for Cath Lab) OTHER ONE (11:45)
[2017-08-13] MEDS ORDERED: HEPARIN-NS/PF INJ 1,000 ML ONE (11:53)
[2017-08-13] MEDS ORDERED: MIDAZOLAM HCL 2 MG/2 ML VIAL ONE (11:53)
[2017-08-13] MEDS ORDERED: NITROGLYCERIN INJ 5 ML ONE (11:54)
[2017-08-13] MEDS ORDERED: HEPARIN SODIUM - IV 10,000 UNITS/10 ML VIAL ONE (11:54)
[2017-08-13] MEDS ORDERED: VERAPAMIL HCL 5 MG/2 ML VIAL ONE (11:54)
[2017-08-13] MEDS ORDERED: SODIUM CHLOR 0.9% 1000 ML INJ 1,000 ML IV SCH (12:37)
--- NOTE | 2017-08-13 12:39 | CATHPROC ---
[facility] HIS Report Study Information Study Number Admission Scheduled Start Study Start [id number] Aug 11 2017 5:03AM 08/12/2017 Aug 13 2017 11:45AM [facility] Service Cardiac Catheterization Admit Source Facility Department Other [facility] Physician and Clinical Staff Initial [facility] Outcomes Liaison Madhu RN, Oren Recorder Jose Bennett,PREPARATION SUPERVISOR FREEZING(BS) Scrub Kamilla García,RT(R) Procedures Performed Procedure Location (Site) Vessel Name Coronary Angiograms LCA Left Coronary Coronary Angiograms RCA Right Coronary L Heart Cath LV Gram-hand inj. LV LV Ventricle Equipment Time Test Automation Architect Description Size Mfg Part Number Used/Scraped TRANSDUCER, TRUWAVE [id number] 12:04 PRICE CHENG * Used W/STOCKCOCK *[id number] *[id number] *[id number] 12:04 MALLINCKRODT SYRINGE, ANGIOMAT 150ML 150ML *[id number] Used 2SUB MEDICAL CONCEPT DRAPE, RADIAL FEMORAL FULL 12:04 * [id number] *[id number] Used DEVELOPMENT BODY [id number] 12:04 [employer] PACK, CCL CUSTOM * Used *[id number] 12:04 [employer] SUPPORT, ARTERIAL ADULT 81166 *[id number] Used [id number] 12:04 [employer] PACER PEN, SKIN DUAL W/ RULER * Used *[id number] BAND, RADIAL COMPRESSION TR [id number] 12:29 360SHOP 24CM Used SHORT 24 *[id number] SHEATH, FR6 RADIAL PRELUDE 12:04 360SHOP FR 6 [id number] Used EASE 11CM [id number] 12:04 [employer] WIRE, EXCHANGE 260CM 3MMJ 260CM Used *[id number] 12:04 NAMIC MANIFOLD, 4 PORT * Used *[id number] 12:04 [employer]ED OMNIPAQUE, 350 MG, 150ML 150ML [id number] Used [id number] 12:04 [employer] BL[employer]ET,WARM AIR CCL * Used *[id number] CATHETER, FR5 OPTITORQUE [id number] 12:18 TERDirected Edge MEDICAL FR 5 Used RADIAL TIG 4.0 *[id number] History: Current Medications Medication Dosage/Unit Route Frequency Last Date/Time Taken Beta Bhavin Statins (any) ASA History: Allergies Allergy Reaction No Known Allergies latex blisters History: Risk Factors Family History of Hypertension Dyslipidemia Previous PA Previous Heart Failure Premature CAD Yes Yes No Yes No Prior Valve Prior PCI Prior CABG Surgery No No No Cerebrovascular Peripheral Artery Chronic Lung On Dialysis Diabetes Diabetes Therapy Disease Disease Disease No Yes No No Yes Oral History: Stress Tests Stress or Imaging Studies Performed No History: Other Current Smoker No Labs Hgb (g/dl) Hct (%) WBC (l/cumm) Platelets (thousands) 11.60-17.00 35.00-51.00 4.00-11.00 150.00-450.00 12.3 37.2 7.3 186 Glucose (mg/dl) BUN (mg/dl) Creatinine (mg/dl) BUN:Creatinine (1:x) 74.00-106.00 7.00-18.00 0.50-1.30 10.00-20.00 156 19 1.4 13.6 Na (meq/l) K (meq/l) 136.00-145.00 3.50-5.10 142 4.1 INR (PTT:PT) 0.90-1.10 1 Troponin I (ng/ml) CPK-MB (ng/ML) 0.02-0.05 0.50-3.60 0.18 Not Drawn Medication Medication Total Dose (Bolus/Oral) Medication Total Dosage/Unit 1% XYLOCAINE 20 mL RADIAL COCKTAIL 5 mL (Bolus) VERSED 2 mg Medications (Bolus/Oral) Medication Time Given Dosage/Unit Administered By Reason 1% XYLOCAINE 08/13/2017 12:14:27 PM 20 mL Salazar Watson 20 mL 1% XYLOCAINE given in lab by Salazar Watson in Right Radial via Subcutaneous. Ordered by Caroline Watson. VERSED 08/13/2017 12:15:16 PM 2 mg Salazar Watson 2 mg VERSED given in lab by Salazar Watson in Left Forearm via Peripheral IV. Ordered by Salazar Watson. Ntg 200mcg Verapamil 2.5mg Heparin RADIAL COCKTAIL 08/13/2017 12:17:29 PM 5 mL (Bolus) Salazar Watson 2500U 5 mL (Bolus) RADIAL COCKTAIL given in lab by Salazar Watson in Right Radial via Radial. Using [Solution Name]. Ordered by Salazar Watson. Reason: Ntg 200mcg Verapamil 2.5mg Heparin 2500U. Medication (Drip) Medication Time Given Dosage/Unit Concentration/Unit Diluent (ml) Solution IV Solutions 08/13/2017 11:45:26 AM 0 mL (IV) 500 NaCl .9 Patient arrived on IV Solutions in Left Forearm via Peripheral IV. Pump/Drip Flow = 20 ml/hr using Na Cl .9. Initial Case Assessment Cardiovascular HR Rhythm NIBP Chest Pain 64 SINUS VINICIO 159/85 0 Edema Present Skin color Skin None Normal Warm Dry Circulatory - Right Pulses Dorsalis Pedis Femoral Radial 1 2 2 Scale (0,1,2,3,4,d) Circulatory - Left Pulses Dorsalis Pedis Femoral Radial 1 2 Scale (0,1,2,3,4,d) Circulatory - Lower Extremities Color Lower Right Color Lower Left Normal Normal Neurological State Oriented to time-place- Alert Moves all extremities person Respiration - General Respiration Rate SpO2 (%) (B/min) 15 99 Chronological Log Time Study Chronological Log 11:45:13 Patient arrived via Bed. 11:45:13 Patient Name, D.O.B, / Armband Verified By R.N. 11:45:14 Consent signed by the physician and the patient and verified by the [facility] staff. 11:45:15 Pre-op and post- op instructions given; patient acknowledges understanding of instruction s. Verbal Stimulation=~VERBAL~ Physical Stimulation=~PHYSICAL~ Airway=~AIRWAY~ Respiration=~RESP IRATION~ 11:45:16 TOTAL=~TOTAL~. (0=absent, 1=limited, 2=present) 11:45:17 Allens test performed on the right radial and ulnar artery. 11:45:19 Patient has been NPO for Less than 6Hrs. 11:45:19 Skin Breakdown- 11:45:20 Patient Warmer Placed on the Table. 11:45:25 A # 20 IV was noted in the Forearm (left). Grade = 0 11:45:26 Patient arrived on IV Solutions in Left Forearm via Peripheral IV. Pump/Drip Flow = 20 ml/h r using NaCl .9. 11:45:27 History and physical on the chart or being dictated. Assessment: Initial Case, HR=64 BPM, Rhythm=SINUS VINICIO, IABT=605/85 mmhg, Chest Pain=0, Edema= None, Color=Normal, Skin = Warm, Dry Right Pulses: Davi Ped=1, Femoral=2, Radial=2 Left Pulses: Davi Ped=1, Femoral=2 11:45:27 Lower Right Extremities: Color=Normal Lower Left Extremities: Color=Normal Neurological: State=Alert, Ox3, [place] Respiration: Resp=15 B/min, SpO2=99 % Vitals capture started with the following parameters, Patient=Adult, Interval=5 min, Initial Pr ezzdin=752 mmHg, 11:50:54 Deflation Rate=5 mmHg, Cuff placed on Right Arm 11:51:32 KKFL=927/88 mmhg, SpO2=98.0 %, Pain=0, Tyrone=10, Mccord=2 11:52:50 Reference ECG taken 11:57:15 HR=62 bpm, EUDK=767/87 mmhg, SpO2=98.0 %, Resp=14 B/min, Pain=0, Tyrone=10, Mccord=2 12:01:39 HR=65 bpm, HRZB=704/87 mmhg, SpO2=97.0 %, Resp=16 B/min, Pain=0, Tyrone=10, Mccord=2 12:06:38 HR=58 bpm, MDUW=377/85 mmhg, SpO2=98.0 %, Resp=15 B/min, Pain=0, Tyrone=10, Mccord=2 12:06:41 Pressure channel 1 zeroed. 12:08:09 Right Radial and groin(s) prepped with 2% chlorhexidine, and draped after a 3 min. waiting time. 12:08:30 MD paged 12:09:55 MD responded 12:12:05 MD arrived. 12:12:24 HR=62 bpm, SGMR=147/76 mmhg, SpO2=96.0 %, Resp=15 B/min, Pain=0, Tyrone=10, Mccord=2 Time Out. Correct patient, correct procedure, correct physician, power injector not loaded with contrast with surgical 12:14:05 team present. Time Out Concurred by MD and individual staff in procedure. 12:14:24 Case Start 12:14:27 20 mL 1% XYLOCAINE given in lab by Salazar Watson in Right Radial via Subcutaneous. Ordered b y Salazar Watson. 12:15:16 2 mg VERSED given in lab by Salazar Watson in Left Forearm via Peripheral IV. Ordered by Salazar Gardner. 12:16:31 Access site was RIGHT Radial Artery. 12:16:40 HR=61 bpm, YPKJ=463/77 mmhg, SpO2=97.0 %, Resp=20 B/min, Pain=0, Tyrone=10, Mccord=2 A SHEATH, FR6 RADIAL PRELUDE EASE 11CM FR 6 was advanced into the Radial (right) using the Perc utaneous 12:17:06 technique. 5 mL (Bolus) RADIAL COCKTAIL given in lab by Salazar Watson in Right Radial via Radial. Using [So lution Name]. Ordered 12:17:29 by Salazar Watson. Reason: Ntg 200mcg Verapamil 2.5mg Heparin 2500U. A CATHETER, FR5 OPTITORQUE RADIAL TIG 4.0 FR 5 was advanced over a wire. OMNIPAQUE, 350 MG, 150 ML 150ML 12:17:50 was used for injections. 12:18:42 The RCA was injected and visualized at various angles. OMNIPAQUE, 350 MG, 150ML 150ML used . Recorded Pressure: Ao, HR=62, Condition=Condition 1 12:19:53 (Aorta) Ao 135/63/97 Recorded Pressure: Ao, HR=66, Condition=Condition 1 12:20:31 (Aorta) Ao 134/70/98 12:21:39 HR=60 bpm, SVIT=052/75 mmhg, SpO2=92.0 %, Resp=18 B/min After removing the current catheter a JL 3.5 INFINITI CATHETER FR 6 was advanced over a WIRE, E XCHANGE 260CM 12:21:39 3MMJ 260CM. 12:22:11 The LCA was injected and visualized at various angles. OMNIPAQUE, 350 MG, 150ML 150ML used . 12:25:16 Catheter was removed A MPA-2 INFINITI CATHETER FR 6 was advanced over a wire. OMNIPAQUE, 350 MG, 150ML 150ML was use d for 12:25:32 injections. 12:25:54 The LV was manually injected with 10 cc's and visualized. OMNIPAQUE, 350 MG, 150ML 150ML us ed. 12:26:34 HR=64 bpm, AAGC=069/70 mmhg, SpO2=94.0 %, Resp=17 B/min, Pain=0, Tyrone=10, Mccord=2 Recorded Pressure: LV, HR=50, Condition=Condition 1 12:27:53 (Left Ventricle) LV 158/6/10 Recorded Pressure: LV, Ao, HR=59, Condition=Condition 1 12:28:13 (Left Ventricle) LV 153/-37/12, (Aorta) Ao 157/64/98 12:28:50 Catheter was removed 12:28:54 Case End Radial Compression Device Used. 12 mLs of air placed in BAND, RADIAL COMPRESSION TR SHORT 24 2 4CM. Affected 12:28:57 hand 95 % O2 saturation. 12:29:19 Sterile dressing applied to site 12:29:20 No case complications noted. 12:29:21 Cine recording checked. 12:29:23 Bedside Report will be given. 12:29:25 Contrast Scanned 12:29:30 A Left Heart Cath was performed. 12:29:31 Patient moved to stretcher 12:31:35 HR=57 bpm, YXKY=180/78 mmhg, SpO2=94.0 %, Resp=16 B/min, Pain=0, Tyrone=10, Mccord=2 End Study - Contrast Media Used In Study Contrast Total Opened (mL) Total Used (mL) Total Wasted (mL) Omnipaque 80 80 0 End Study - Maximum Contrast Load Max Contrast Load (mL) 274.4 End Study - Radiation Exposure Fluoro Time (minutes) 5.5 End Study - Patient Disposition Complications Transferred To Telemetry Bed
[2017-08-13] MEDS ORDERED: MISC INFORMATION XX ONE (12:45)
--- NOTE | 2017-08-13 12:45 | MA ---
cc: MUSHTAQ JOHN MD, GLENN H. M.D. DATE: 08/13/2017 PROCEDURE Left heart catheterization, selective coronary angiography, left ventriculography. PROCEDURE NOTES The patient was brought to the cardiac catheterization laboratory in a fasting state after having signed informed consent. The right radial region was prepped and draped as per policy and anesthetized with 1% lidocaine. Arterial access was obtained via the right radial artery and a 6-Slovak sheath placed. Coronary arteriography was performed using a tiger catheter to engage the right coronary and a Fernando left 3.5 to engage the left main. Left ventriculography was done using a multipurpose catheter (hand injection). There were no apparent immediate complications. A radial artery compression band was applied to her right wrist at the end of the case. HEMODYNAMIC DATA Left ventricle 153 with an end-diastolic pressure of 12. Aorta 157/64 with a mean of 98. There was no significant transvalvular aortic gradient on pullback of the pigtail catheter. CORONARY ARTERIOGRAPHY The left main is normal. The left anterior descending gives rise to a small to medium-sized diagonal which has up to 60% ostial stenosis. There is diffuse disease of the proximal LAD resulting in up to 20% stenosis. There is 10% stenosis in the mid LAD. The distal LAD is normal. The left circumflex is a fairly large vessel giving rise to three medium-sized obtuse marginals. The third obtuse marginal has 40% proximal stenosis. The proximal left circumflex has 15% diffuse disease. The right coronary artery is a small to medium-sized dominant vessel with no disease. LEFT VENTRICULOGRAPHY Contrast injection of the left ventricle reveals no segmental wall motion abnormalities. Ejection fraction is estimated at 60%. CONCLUSIONS 1. Overall mild two-vessel coronary artery disease. 2. Right dominant system. 3. Normal left ventricular function with estimated ejection fraction is 60%. Salazar Watson MD G[facility]/TLL /12:32 PM /12:38 PM [facility]
[2017-08-13] MEDS: cefTRIAXone INJ 1,000 MG in SODIUM CHLORIDE 0.9% INJ 100 ML IV SCH (17:38)
--- NOTE | 2017-08-13 18:52 | HHI.PR ---
Subjective Remarks Denies chest pain or sob Objective Vitals Vital Signs Date Time Temp Pulse Resp B/P (MAP) Pulse Ox O2 Delivery O2 Flow Rate FiO2 08/13/17 11:00 98.3 60 18 161/90 (113) 99 08/13/17 11:00 60 08/13/17 10:00 58 08/13/17 09:00 52 08/13/17 08:00 50 08/13/17 07:35 98.5 50 18 150/80 (103) 98 08/13/17 07:00 60 08/13/17 06:00 52 08/13/17 05:00 48 08/13/17 04:50 43 16 153/75 (101) 99 08/13/17 04:00 48 08/13/17 03:00 48 08/13/17 02:00 52 08/13/17 01:00 52 08/13/17 00:00 58 08/12/17 23:30 61 18 158/80 (106) 96 08/12/17 23:00 64 08/12/17 22:00 64 08/12/17 21:00 64 08/12/17 20:00 78 08/12/17 19:30 98.4 66 18 156/85 (108) 98 08/12/17 19:00 72 I/O 08/12/17 08/12/17 08/12/17 08/13/17 08/13/17 08/13/17 07:00 15:00 23:00 07:00 15:00 23:00 Intake Total 1071 ml 1000 ml 1300 ml Output Total 500 ml 700 ml Balance 571 ml 1000 ml 600 ml Intake Oral 240 ml 300 ml IV Total 831 ml 1000 ml 1000 ml Output Urine Total 500 ml 700 ml # Bowel Movements 1 Result Diagram: 08/12/17 0147 08/13/17 0555 Imaging Last Impressions Renal Ultrasound 08/12/17 0000 Signed Impressions: Service Date/Time: Saturday, August 12, 2017 11:46 - CONCLUSION: Question of small stones bilaterally. No evidence of acute obstruction. Richie Shahid MD Chest X-Ray 08/11/17 0000 Signed Impressions: Service Date/Time: Friday, August 11, 2017 05:08 - CONCLUSION: 1. Cardiomegaly with minimal basilar atelectasis. Elevated right hemidiaphragm. Jun Garduno MD Objective Remarks GENERAL: Well-nourished, well-developed pleasant female patient in NAD. somnolent. SKIN: Warm and dry. No rash. HEENT: Normocephalic. Atraumatic.Pupils equal and round. Mucous membranes pink and moist. CARDIOVASCULAR: Regular rate and rhythm. S1, S2 noted. No murmur appreciated. RESPIRATORY: No accessory muscle use. Clear to auscultation. Breath sounds equal bilaterally. GASTROINTESTINAL: Abdomen soft, non-tender, nondistended. Normoactive bowel sounds x4. MUSCULOSKELETAL: No obvious deformities. Extremities without clubbing, cyanosis , or edema. NEUROLOGICAL: Awake and alert. No obvious cranial nerve deficits. Motor grossly within normal limits. Normal speech. PSYCHIATRIC: Patient has a flat affect. Medications and IVs Current Medications Medications (Trade) Dose Ordered Sig/Barrett Route Start Time Stop Time Status Last Admin (Nitrostat Sl) 0.4 mg Q5M PRN SL 08/11/17 05:00 08/11/17 05:28 Sodium Chloride 1,000 ml @ 100 mls/hr Q10H IV 08/11/17 04:57 08/13/17 05:53 (NS Flush) 2 ml UNSCH PRN IV FLUSH 08/11/17 05:00 (NS Flush) 2 ml BID IV FLUSH 08/11/17 09:00 08/13/17 08:52 (Zofran Inj) 4 mg Q6H PRN IVP 08/11/17 05:00 (Tylenol) 650 mg Q6H PRN PO 08/11/17 05:00 (Miranda 5-325 Mg) 1 tab Q4H PRN PO 08/11/17 05:00 (Morphine Inj) 2 mg Q3H PRN IV PUSH 08/11/17 05:00 (Alice-Colace) 1 tab BID PO 08/11/17 09:00 08/12/17 09:50 (Milk Of Magnesia Liq) 30 ml Q12H PRN PO 08/11/17 05:00 (Senokot) 17.2 mg Q12H PRN PO 08/11/17 05:00 (Dulcolax Supp) 10 mg DAILY PRN RECTAL 08/11/17 05:00 (Lactulose Liq) 30 ml DAILY PRN PO 08/11/17 05:00 (Ecotrin Ec) 81 mg DAILY PO 08/11/17 09:00 08/13/17 08:52 (Pravachol) 40 mg DAILY PO 08/11/17 09:00 08/13/17 08:52 (D50w (Vial) Inj) 50 ml UNSCH PRN IV PUSH 08/11/17 05:15 (Glucagon Inj) 1 mg UNSCH PRN OTHER 08/11/17 05:15 (NovoLOG SUPPLEMENTAL SCALE) 1 ACHS SLIDING SCALE SQ 08/11/17 08:00 08/13/17 17:00 (Levemir Inj) 35 units HS SQ 08/11/17 21:00 08/12/17 23:37 (Levemir Inj) 50 units DAILYAC SQ 08/11/17 08:00 08/12/17 08:00 (Protonix) 40 mg DAILY PO 08/11/17 09:00 08/13/17 08:52 (Nitroglycerin 2% Oint) 0.5 inch Q6HR PRN TOPICAL 08/11/17 05:15 (Heparin Inj) 5,000 units UNSCH PRN IV 08/11/17 16:00 (Heparin Inj) 2,500 units UNSCH PRN IV 08/11/17 16:00 Heparin Sodium/ Dextrose 250 ml @ 9 mls/hr TITRATE PRN IV 08/11/17 12:00 08/12/17 12:52 Ceftriaxone Sodium 1000 mg/ Sodium Chloride 100 ml @ 200 mls/hr Q24H IV 08/11/17 18:00 08/13/17 17:38 Sodium Chloride 1,000 ml @ 100 mls/hr Q10H IV 08/12/17 12:37 08/17/17 12:36 (Benadryl) 50 mg [employer] PO 08/12/17 12:45 08/16/17 12:44 (Valium) 10 mg [employer] PO 08/12/17 12:45 08/16/17 12:44 Sodium Chloride 1,000 ml @ 100 mls/hr Q10H IV 08/13/17 12:37 08/14/17 00:36 A/P Problem List: (1) Chest pain ICD Code: R07.9 - Chest pain, unspecified (2) Elevated troponin ICD Code: R74.8 - Abnormal levels of other serum enzymes (3) Renal insufficiency ICD Code: N28.9 - Disorder of kidney and ureter, unspecified (4) HTN (hypertension) ICD Code: I10 - Essential (primary) hypertension (5) DM (diabetes mellitus) ICD Code: E11.9 - Type 2 diabetes mellitus without complications Assessment and Plan 77-year-old female with a PMH of HTN, Hyperlipidemia, CAD s/p Cardiac Stent, h/ o CVA and DM who was brought to the ER under [place] by Police after stating she didn't want to live anymore. Pt lives alone w/ , reportedly increasingly agitated/combative, pt states she wanted to get away and drove to the store and sat in her car for several hours. Family concerned and called 911 at which time pt stated she didn't want to live and placed under [place], taken to [facility], and while there, complained of substernal chest pain. While in ER, pt evaluated at length by ER physician, no suicidal ideation, [place] lifted. Currently chest pain free. NSTEMI: acute onset of substernal chest pain, h/o CAD s/p multiple stents. Trop 0.11, however could be due to renal dysfunction. EKG reviewed, shows AV block and anterolateral Twave changes, possible ischemia. CXR images reviewed, shows cardiomegaly, otherwise unremarkable. Admitted to [facility]. The patient was started on a heparin drip 08/12 cardiology consulted, the patient seen by Dr. Robledo. Cardiac enzymes monitored and slowly trending up from 0.11 - 0.18. The patient will be evaluated by Dr. Watson for cardiac catheterization. The patient is currently chest pain-free. 08/13 status post cardiac catheterization with findings of overall mild two- vessel coronary artery disease. Right dominant system and a normal left ventricular ejection fraction of 60%. Continue aspirin, beta sherley was held due to bradycardia. [place]: Patient states she has a history of chronic kidney disease. Creatinine on admission 2.04, patient started an IV fluids and creatinine trending down to 1.45. HTN: BP 160's, will monitor, blood pressure held due to bradycardia, I will start the patient on amlodipine. DM: Sliding scale w/ Accu-Cheks. Continue patient's insulin. Continue to Hold Metformin in light of renal insufficiency. Blood sugars stable. Escherichia coli UTI: UA with +nitrites/leuks/WBCs/bacteria and urine culture growing Escherichia coli. Patient reports recently being on Levaquin for cystitis. Continue IV Rocephin for now and monitor urine culture. DVT Prophylaxis: on Heparin drip Discharge Planning Discharge pending cardiology clearance. Problem Qualifiers (1) Chest pain: Qualified Codes: R07.9 - Chest pain, unspecified Giancarlo Dueñas MD Aug 13, 2017 18:52
[2017-08-14] VITALS (15 sets, daily range): BP systolic 147–168; BP diastolic 81–90; PULSE 51–74; RESP 16–18; TEMP 97.9–98.6; O2SAT 97–99
[2017-08-14] MEDS: INSULIN DETEMIR 100 UNITS/ML VIAL SQ SCH (08:00)
[2017-08-14] MEDS: INSULIN ASPART SUPPLEMENTAL SCALE SQ SCH ×2 (08:00→12:00)
[2017-08-14] MEDS: ASPIRIN EC 81 MG TABEC PO SCH (08:49)
[2017-08-14] MEDS: PANTOPRAZOLE SOD 40 MG DELAYED RELEASE TAB PO SCH (08:49)
[2017-08-14] MEDS: PRAVASTATIN SOD 40 MG TAB PO SCH (08:50)
[2017-08-14] MEDS: DOCUSATE SODIUM 50 MG/SENNA 8.6 MG TAB PO SCH (08:50)
[2017-08-14] MEDS: SODIUM CHLORIDE 0.9% FLUSH 10 ML FLUSH IV FLUSH SCH (08:51)
[2017-08-14] MEDS ORDERED: NON-FORMULARY DRUG (Simvastatin 10 MG) PO SCH (09:00)
[2017-08-14] MEDS ORDERED: NOVOLOGP2 SQ (14:36)
[2017-08-14] MEDS ORDERED: PRAV40TA PO (14:36)
[2017-08-14] MEDS ORDERED: AMLO10 PO (14:36)
[2017-08-14] MEDS ORDERED: INSU1MIS15 (14:37)
[2017-08-14] MEDS ORDERED: LANTUS2P SQ (15:28)
--- NOTE | 2017-08-14 15:29 | HHI.DCPOC ---
Discharge Care Plan Diagnosis: (1) DM (diabetes mellitus) (2) NSTEMI (non-ST elevation myocardial infarction) (3) CAD (coronary artery disease) (4) Bradycardia (5) Chest pain Goals to Promote Your Health * To prevent worsening of your condition and complications * To maintain your health at the optimal level Directions to Meet Your Goals Take your medications as prescribed Follow your dietary instruction Follow activity as directed Keep your appointments as scheduled Take your immunizations and boosters as scheduled If your symptoms worsen call your PCP, if no PCP go to Urgent Care Center or Emergency Room Smoking is Dangerous to Your Health. Avoid second hand smoke Call the 24-hour hour crisis hotline for domestic abuse at Giancarlo Dueñas MD Aug 14, 2017 15:29
--- NOTE | 2017-08-14 15:31 | HHI.DS ---
Discharge Summary Admission Date Aug 12, 2017 at 13:16 Discharge Date: Aug 14, 2017 Admitting Diagnosis chest pain (1) Chest pain ICD Code: R07.9 - Chest pain, unspecified (2) Elevated troponin ICD Code: R74.8 - Abnormal levels of other serum enzymes (3) Renal insufficiency ICD Code: N28.9 - Disorder of kidney and ureter, unspecified (4) HTN (hypertension) ICD Code: I10 - Essential (primary) hypertension (5) DM (diabetes mellitus) ICD Code: E11.9 - Type 2 diabetes mellitus without complications Brief History - From Admission This is a 77-year-old female with a PMH of HTN, Hyperlipidemia, CAD s/p Cardiac Stent, h/o CVA and DM who was brought to the ER under [place] by Police after stating she didn't want to live anymore. Pt lives alone w/ , reportedly increasingly agitated/combative, pt states she wanted to get away and drove to the store and sat in her car for several hours. Family concerned and called 911 at which time pt stated she didn't want to live and placed under [place]. During that time, pt w/ complaints of substernal chest pain. No fever, chills, SOB or cough. While in ER, pt evaluated at length by ER physician, no suicidal ideation, [place] lifted. BP 160/77, HR 51, O2 sat 95 % on RA, Afebrile. CBC unremarkable. Creatinine 2.04, no previous labs for comparison. Troponin 0.11. EKG w/ no acute ischemia. Currently chest pain free. CBC/BMP: 08/12/17 0147 08/13/17 0555 Significant Findings Laboratory Tests Test 08/11/17 16:00 08/11/17 18:07 08/12/17 01:47 08/12/17 07:17 Urine Turbidity CLOUDY (CLEAR) Urine Glucose (UA) 300 mg/dL (NEG) Urine Occult Blood SMALL (NEG) Urine Nitrite POS (NEG) Urine Leukocyte Esterase LARGE (NEG) Urine WBC Clumps MANY (NONE) Urine Bacteria MOD /hpf (NONE) Activated Partial Thromboplast Time 32.7 SEC (24.3-30.1) 53.9 SEC (24.3-30.1) 68.1 SEC (24.3-30.1) Troponin I 0.18 NG/ML (0.02-0.05) Red Blood Count 3.90 MIL/MM3 (4.00-5.30) Eosinophils (%) (Auto) 4.9 % (0.0-4.0) Blood Urea Nitrogen 28 MG/DL (7-18) Creatinine 1.60 MG/DL (0.50-1.00) Random Glucose 158 MG/DL (74-106) Albumin 3.1 GM/DL (3.4-5.0) Calcium Level 8.2 MG/DL (8.5-10.1) Chloride Level 109 MEQ/L (98-107) Estimat Glomerular Filtration Rate 31 ML/MIN (>89) Test 08/12/17 16:49 08/13/17 05:55 Activated Partial Thromboplast Time 51.3 SEC (24.3-30.1) 58.9 SEC (24.3-30.1) Blood Urea Nitrogen 19 MG/DL (7-18) Creatinine 1.45 MG/DL (0.50-1.00) Random Glucose 156 MG/DL (74-106) Chloride Level 108 MEQ/L (98-107) Estimat Glomerular Filtration Rate 35 ML/MIN (>89) Imaging Last Impressions Renal Ultrasound 08/12/17 0000 Signed Impressions: Service Date/Time: Saturday, August 12, 2017 11:46 - CONCLUSION: Question of small stones bilaterally. No evidence of acute obstruction. Richie Shahid MD Chest X-Ray 08/11/17 0000 Signed Impressions: Service Date/Time: Friday, August 11, 2017 05:08 - CONCLUSION: 1. Cardiomegaly with minimal basilar atelectasis. Elevated right hemidiaphragm. Jun Garduno MD PE at Discharge GENERAL: Well-nourished, well-developed pleasant female patient in NAD. somnolent. SKIN: Warm and dry. No rash. HEENT: Normocephalic. Atraumatic.Pupils equal and round. Mucous membranes pink and moist. CARDIOVASCULAR: Regular rate and rhythm. S1, S2 noted. No murmur appreciated. RESPIRATORY: No accessory muscle use. Clear to auscultation. Breath sounds equal bilaterally. GASTROINTESTINAL: Abdomen soft, non-tender, nondistended. Normoactive bowel sounds x4. MUSCULOSKELETAL: No obvious deformities. Extremities without clubbing, cyanosis , or edema. NEUROLOGICAL: Awake and alert. No obvious cranial nerve deficits. Motor grossly within normal limits. Normal speech. PSYCHIATRIC: Patient has a flat affect. Pt update on day of discharge Denies cp/sob. Blood sugars very elevated. Discharge Time: > 30 minutes Discharge Instructions Follow up Referrals: PCP Follow-up - 1 Week New Medications: Insulin Aspart Inj (Novolog Inj) 1,000 Unit/10 Ml Vial 2-12 UNITS SQ ACHS for Blood Sugar Management, #10 ML 0 Refills Max dose at bedtime ( ) units; sugars less than 70,(0) units; sugars 150-199,(2) units; sugars 200-249,(4) units; sugars 250-299,(7) units; sugars 300-349,(10) units; sugars greater than 349,(12)units Insulin Glargine Inj (Lantus Inj) 1,000 Unit/10 Ml Vial 30 UNITS SQ BID for Blood Sugar Management, #1 VIAL 0 Refills Insulin Syringe/U-100/31G X 5/16" 1 ml (Insulin Syringe/U-100/31G X 5/16" 1 ml) 31 Gauge X 5/16" Mis EA .ROUTE DIRECTED for Blood Sugar Management, #1 0 Refills Amlodipine (Norvasc) 10 Mg Tab 10 MG PO DAILY for Blood Pressure Management, #31 TAB Pravastatin (Pravachol) 40 Mg Tab 40 MG PO DAILY for Cholesterol Management, #31 TAB Continued Medications: Allopurinol (Allopurinol) 100 Mg Tab 100 MG PO DAILY for Gout, #30 TAB 0 Refills Aspirin (Aspirin Low Dose) 81 Mg Chew 81 MG CHEW DAILY, TAB 0 Refills Metformin (Glucophage) 1,000 Mg Tab 1000 MG PO DAILY for Blood Sugar Management, #30 TAB 0 Refills With a meal Nitroglycerin SL (Nitroglycerin SL) 0.4 Mg Subl 0.4 MG SL DIRECTED PRN for CHEST PAIN, #100 TAB.SL 0 Refills ONE TABLET UNDER THE TONGUE NEEDED FOR CHEST PAIN, MAY REPEAT EVERY FIVE MINUTES FOR A TOTAL OF 3 DOSES OR CALL 911 IF NO RELIEF Omeprazole (Omeprazole) 40 Mg Cap 40 MG PO DAILY, #30 CAP 0 Refills Discontinued Medications: Furosemide (Furosemide) 40 Mg Tab 40 MG PO DAILY, #30 TAB 0 Refills Insulin Detemir Inj (Levemir Inj) 1,000 unit/ 10 ML Vial 50 UNITS SQ DAILYAC for Blood Sugar Management, VIAL 0 Refills Do not mix with any other Insulin. Insulin Detemir Inj (Levemir Inj) 1,000 unit/ 10 ML Vial 35 UNITS SQ HS for Blood Sugar Management, VIAL 0 Refills Do not mix with any other Insulin. Metoprolol Succinate ER 24 HR (Metoprolol Succinate ER 24 HR) 25 Mg Tab 12.5 MG PO DAILY, #30 TAB 0 Refills Simvastatin (Simvastatin) 10 Mg Tab 10 MG PO DAILY for Cholesterol Management, #30 TAB 0 Refills Giancarlo Dueñas MD Aug 14, 2017 15:31
--- NOTE | 2017-08-14 15:37 | HHI.FF ---
Face to Face Verification Diagnosis: (1) DM (diabetes mellitus) (2) NSTEMI (non-ST elevation myocardial infarction) (3) CAD (coronary artery disease) (4) Bradycardia (5) Chest pain Physical Therapy Order: Evaluate and Treat Home Health Nursing Order: Signs/symptoms of disease process Diabetic education Medication education-adverse effect Nursing assessment with vital signs I have seen patient Bridget Leal on 08/14/17. My clinical findings support the need for the requested home health care services because: Need for psychosocial assistance Injectable med education/admin I certify that my clinical findings support that this patient is homebound because: Unsafe to leave home unassisted Need for psychosocial assistance Giancarlo Dueñas MD Aug 14, 2017 15:37
== END 2017-08-14 16:50 | disposition home or self-care (01) | DRG 281 ==
LOC: NEPC 02:01 → NEDA 05:03 → HCIN 08:08 → OBSVTOIN 08-12 13:16
PROVIDERS: ADMIT Hospitalist; ATTEND Hospitalist
PROC: B2111ZZ Fluoroscopy of Multiple Coronary Arteries using Low Osmolar Contrast (ICD-10-PCS; 2017-08-13)
PROC: B2151ZZ Fluoroscopy of Left Heart using Low Osmolar Contrast (ICD-10-PCS; 2017-08-13)
PROC: 4A023N7 Measurement of Cardiac Sampling and Pressure, Left Heart, Percutaneous Approach (ICD-10-PCS; principal; 2017-08-13 11:00)
DX: I21.4 Non-ST elevation (NSTEMI) myocardial infarction (principal); N17.9 Acute kidney failure, unspecified; E11.22 Type 2 diabetes mellitus with diabetic chronic kidney disease; N39.0 Urinary tract infection, site not specified; E78.5 Hyperlipidemia, unspecified; I25.10 Atherosclerotic heart disease of native coronary artery without angina pectoris; I12.9 Hypertensive chronic kidney disease with stage 1 through stage 4 chronic kidney disease, or unspecified chronic kidney disease; N18.9 Chronic kidney disease, unspecified; I25.2 Old myocardial infarction; I44.30 Unspecified atrioventricular block; I51.7 Cardiomegaly; N20.0 Calculus of kidney; Z86.73 Personal history of transient ischemic attack (TIA), and cerebral infarction without residual deficits; B96.20 Unspecified Escherichia coli [E. coli] as the cause of diseases classified elsewhere; Z77.22 Contact with and (suspected) exposure to environmental tobacco smoke (acute) (chronic); Z95.1 Presence of aortocoronary bypass graft; Z87.442 Personal history of urinary calculi; Z95.5 Presence of coronary angioplasty implant and graft; F43.20 Adjustment disorder, unspecified
CPT/HCPCS: 71010; 76775; 80048; 80053; 81001; 82948; 84484; 85025; 85027; 85610; 85730; 87077; 87086; 87186; 93005; 93458; 96361; 96365; 96375; C1769; C1893; G0378; J0696; J1644; J1815; J2250; J2270; J7030; Q9967

== ENCOUNTER 2018-04-04 21:02 | Inpatient (IN) | payer OTHER, MEDICAID, MEDICARE ==
[~2018-04-04] VITALS: Ht 157.5 cm; Wt 78.0 kg
[~2018-04-04 21:02] MED LIST: ALLO100T PO; AMLO10 PO; ASPI81CH6 CHEW; GLUC1000 PO; INSU1MIS15; LANTUS2P SQ; NITR1SUB3 SL; NOVOLOGP2 SQ; OMEP40CA2 PO; PRAV40TA PO
[2018-04-04 21:13] VITALS: BP 164/81; PULSE 74; RESP 16; TEMP 98.8; O2SAT 97
[2018-04-05 02:54] LABS: AUTOMATED NEUTROPHIL # 4.7 TH/MM3 (1.8-7.7); BASOPHIL # 0.1 TH/MM3 (0-0.2); BASOPHIL % 0.9 % (0.0-2.0); EOSINOPHIL # 0.4 TH/MM3 (0-0.4); EOSINOPHIL % 5.1 % (0.0-4.0); HEMATOCRIT 37.5 % (35.0-46.0); HEMOGLOBIN 12.2 GM/DL (11.6-15.3); LYMPHOCYTE # 2.3 TH/MM3 (1.0-4.8); MEAN CELL VOLUME 97.4 FL (80.0-100.0); MEAN CORPUSCULAR HEMOGLOBIN 31.8 PG (27.0-34.0); MEAN CORPUSCULAR HGB CONC 32.6 % (32.0-36.0); MEAN PLATELET VOLUME 9.4 FL (7.0-11.0); MONO % 8.3 % (0.0-8.0); MONOCYTE # 0.7 TH/MM3 (0-0.9); NEUT % 57.7 % (16.0-70.0); PLATELET COUNT 231 TH/MM3 (150-450); RED BLOOD COUNT 3.85 MIL/MM3 (4.00-5.30); WHITE BLOOD COUNT 8.1 TH/MM3 (4.0-11.0)
[2018-04-05 03:14] LABS: ALKALINE PHOSPHATASE 109 U/L (45-117); TOTAL BILIRUBIN ADULT 0.2 MG/DL (0.2-1.0); TOTAL PROTEIN 7.5 GM/DL (6.4-8.2)
[2018-04-05 03:24] LABS: ALBUMIN 3.6 GM/DL (3.4-5.0); ALT (GPT) 35 U/L (10-53); AST (GOT) 32 U/L (15-37); BICARBONATE 24.8 MEQ/L (21.0-32.0); BLOOD UREA NITROGEN 31 MG/DL (7-18); CALCIUM 9.2 MG/DL (8.5-10.1); CHLORIDE 110 MEQ/L (98-107); CREATININE 1.59 MG/DL (0.50-1.00); GLOMERULAR FILTRATION RATE 31 ML/MIN (>89); GLUCOSE,RANDOM 282 MG/DL (74-106); SODIUM (NA) 144 MEQ/L (136-145)
--- NOTE | 2018-04-05 03:54 | PD ---
HPI Chief Complaint: Diabetic Time Seen by Provider: 01:42 Travel History International Travel<30 days: No Contact w/Intl Traveler<30days: No Traveled to known affect area: No History of Present Illness HPI pt is having weakness and bradycardia for over week , Hx of bradycardia Halter last week shows HR 30 -70 and sinus pauses She is told she needs a PPM . Pt was just recently returned from [facility] and comes straight to ER for weakness hypotension and bradycardia . She feels dizziness lightheaded and SOB at time . Get dizzy on standing , Spe[place] wolof only , daughter bedside , pt also IDDM on Lantus 44 UNITS BID, , tonight BGM was 500 Daughter gave mother Regular Sq by daugther and comes to ER FS =187 PFSH Past Medical History Cardiac Catheterization: Yes (5 stents) High Cholesterol: Yes Cerebrovascular Accident: Yes Diabetes: Yes Patient Takes Glucophage: No Diminished Hearing: No Hypertension: Yes Kidney Stones: Yes Neurologic: No Immunizations Current: Yes Myocardial Infarction: Yes Past Surgical History Eye Surgery: Yes (CATARACTS) Gynecologic Surgery: Yes (bladder, hysterectomy ) Hysterectomy: Yes Social History Alcohol Use: No Tobacco Use: No Substance Use: No Allergies-Medications (Allergen,Severity, Reaction): Coded Allergies: latex (Verified Allergy, Intermediate, blisters , 04/05/18) Uncoded Allergies: ANESTHETICS (Allergy, Unknown, 04/04/18) Reported Meds & Prescriptions Reported Meds & Active Scripts Active Insulin Syringe/U-100/31G X 16" 1 ml 31 Gauge X /16" Mis Ea .ROUTE DIRECTED Novolog Inj (Insulin Aspart) 1,000 Unit/10 Ml Vial 2-12 Units SQ ACHS Max dose at bedtime ( ) units; sugars less than 70,(0) units; sugars 150-199,(2) units; sugars 200-249,(4) units; sugars 250-299,(7) units; sugars 300-349,(10) units; sugars greater than 349,(12)units Norvasc (Amlodipine Besylate) 10 Mg Tab 10 Mg PO DAILY Reported Losartan (Losartan Potassium) 50 Mg Tab 50 Mg PO BID Atrovent HFA 12.9 GM Inh (Ipratropium [place]) 17 Mcg/Actuation Aer 2 Puff INH BID Levemir Flextouch Pen Inj (Insulin Detemir) 300 unit/3 ML Pen 30 Units SQ BID Atorvastatin (Atorvastatin Calcium) 40 Mg Tab 40 Mg PO HS Allopurinol 100 Mg Tab 100 Mg PO DAILY Aspirin Low Dose (Aspirin) 81 Mg Chew 81 Mg CHEW DAILY Omeprazole 40 Mg Cap 40 Mg PO DAILY Nitroglycerin SL (Nitroglycerin) 0.4 Mg Subl 0.4 Mg SL DIRECTED PRN ONE TABLET UNDER THE TONGUE NEEDED FOR CHEST PAIN, MAY REPEAT EVERY FIVE MINUTES FOR A TOTAL OF 3 DOSES OR CALL 911 IF NO RELIEF Review of Systems Except as stated in HPI: all other systems reviewed are Neg General / Constitutional: Positive: Chills HENT: Positive: Lightheadedness Musculoskeletal: Positive: Weakness Physical Exam Narrative GENERAL: pale diaphoretic HR 47-70 SKIN: Warm and dry. HEAD: Atraumatic. Normocephalic. EYES: Pupils equal and round. No scleral icterus. No injection or drainage. ENT: No nasal bleeding or discharge. Mucous membranes pink and moist. NECK: Trachea midline. No JVD. CARDIOVASCULAR: irregular and chi HR 45-70 RESPIRATORY: No accessory muscle use. Clear to auscultation. Breath sounds equal bilaterally. GASTROINTESTINAL: Abdomen soft, non-tender, nondistended. Hepatic and splenic margins not palpable. MUSCULOSKELETAL: Extremities without clubbing, cyanosis, NO edema. No obvious deformities. NEUROLOGICAL: Awake and alert. No obvious cranial nerve deficits. Motor grossly within normal limits. Five out of 5 muscle strength in the arms and legs. Normal speech. PSYCHIATRIC: Appropriate mood and affect; insight and judgment normal. Data Data Last Documented VS Vital Signs Date Time Temp Pulse Resp B/P (MAP) Pulse Ox O2 Delivery O2 Flow Rate FiO2 04/05/18 04:00 58 16 163/78 (106) 96 Room Air 04/04/18 21:13 98.8 Orders Orders Complete Blood Count With Diff (04/05/18 02:15) Comprehensive Metabolic Panel (04/05/18 02:15) Lipase (04/05/18 02:15) Urinalysis - C+S If Indicated (04/05/18 02:15) Electrocardiogram (04/05/18 ) Troponin I (04/05/18 03:20) Chest, Single Ap (04/05/18 ) Admit Order (Ed Use Only) (04/05/18 05:27) Place In Observation (04/05/18 ) Vital Signs (Adult) Q4H (04/05/18 05:28) Activity Oob Ad Vivi (04/05/18 05:28) Vacuum Kettle Cook / Telemetry .CONTINUOUS (04/05/18 05:28) Sodium Chloride 0.9% Flush (Ns Flush) (04/05/18 05:30) Sodium Chloride 0.9% Flush (Ns Flush) (04/05/18 09:00) Acetaminophen (Tylenol) (04/05/18 05:30) Scd Bilateral/Knee High SOULEYMANE.BID (04/05/18 05:28) Naloxone Inj (Narcan Inj) (04/05/18 05:30) Magnesium Hydroxide Liq (Milk Of Magnesi (04/05/18 05:30) Sennosides (Senokot) (04/05/18 05:30) Bisacodyl Supp (Dulcolax Supp) (04/05/18 05:30) Lactulose Liq (Lactulose Liq) (04/05/18 05:30) Blood Glucose Goal (Criteria) (04/05/18 05:28) Hypoglycemia 70 Mg/Dl Or < (04/05/18 05:28) Notify Dr: Other (04/05/18 05:28) Dextrose 50% In Joana (Vial) Inj (D50w (Vi (04/05/18 05:30) Glucagon Inj (Glucagon Inj) (04/05/18 05:30) Insulin Aspart Supplemtl Scale (Novolog (04/05/18 08:00) Labs Laboratory Tests Test 04/05/18 02:37 White Blood Count 8.1 TH/MM3 Red Blood Count 3.85 MIL/MM3 Hemoglobin 12.2 GM/DL Hematocrit 37.5 % Mean Corpuscular Volume 97.4 FL Mean Corpuscular Hemoglobin 31.8 PG Mean Corpuscular Hemoglobin Concent 32.6 % Red Cell Distribution Width 15.0 % Platelet Count 231 TH/MM3 Mean Platelet Volume 9.4 FL Neutrophils (%) (Auto) 57.7 % Lymphocytes (%) (Auto) 28.0 % Monocytes (%) (Auto) 8.3 % Eosinophils (%) (Auto) 5.1 % Basophils (%) (Auto) 0.9 % Neutrophils # (Auto) 4.7 TH/MM3 Lymphocytes # (Auto) 2.3 TH/MM3 Monocytes # (Auto) 0.7 TH/MM3 Eosinophils # (Auto) 0.4 TH/MM3 Basophils # (Auto) 0.1 TH/MM3 CBC Comment DIFF FINAL Differential Comment Blood Urea Nitrogen 31 MG/DL Creatinine 1.59 MG/DL Random Glucose 282 MG/DL Total Protein 7.5 GM/DL Albumin 3.6 GM/DL Calcium Level 9.2 MG/DL Alkaline Phosphatase 109 U/L Aspartate Amino Transf (AST/SGOT) 32 U/L Alanine Aminotransferase (ALT/SGPT) 35 U/L Total Bilirubin 0.2 MG/DL Sodium Level 144 MEQ/L Potassium Level 4.8 MEQ/L Chloride Level 110 MEQ/L Carbon Dioxide Level 24.8 MEQ/L Anion Gap 9 MEQ/L Estimat Glomerular Filtration Rate 31 ML/MIN Troponin I 0.12 NG/ML Lipase 205 U/L MDM Medical Decision Making Medical Screen Exam Complete: Yes Emergency Medical Condition: Yes Medical Record Reviewed: Yes Interpretation(s) first degree AV block with sinus pauses HR 63 Differential Diagnosis sick sinus syndrome vs heart block second degree vs other causes of bradycardia Narrative Course EKG shows pauses that lower heart rate to 45 pt appear weak and listless, pt needs admission to tele possible urgent PPM in AM at this time her BP is normal and no hypotension Diagnosis Primary Impression: Bradycardia Additional Impression: Sinus pause Admitting Information Admitting Physician Requests: Admit Naun Suazo MD April 05, 2018 03:54
[2018-04-05 04:00] VITALS: BP 163/78; PULSE 58; RESP 16; O2SAT 96
--- NOTE | 2018-04-05 04:48 | RADRPT ---
EXAM DATE: 04/05/2018 4:42 AM EDT AGE/SEX: 77 years / Female INDICATIONS: Chest pain CLINICAL DATA: This is the patient's initial encounter. Patient reports that signs and symptoms have been present for 1 day and indicates a pain score of 4/10. MEDICAL/SURGICAL HISTORY: Hypercholesterolemia. Hypercholesterolemia. Cerebrovascular accident . Myocardial infarction. Kidney stones. Diabetes. Hysterectomy. Bladder. COMPARISON: [facility] – [place], 08/11/[place]. . FINDINGS: The aorta is normal. There is minimal linear density at the left lateral base. Right lung is clear. N o effusion is seen. CONCLUSION: Minimal linear atelectasis or consolidation at the left lateral base. Electronically signed by: Yuval Mcgrath MD 04/05/2018 4:46 AM EDT
[2018-04-05] MEDS ORDERED: ACETAMINOPHEN 325 MG TAB PO PRN (05:30)
[2018-04-05] MEDS ORDERED: LACTULOSE SYRUP 20 GM/30 ML CUP PO PRN (05:30)
[2018-04-05] MEDS ORDERED: SENNOSIDES 8.6 MG TAB PO PRN (05:30)
[2018-04-05] MEDS ORDERED: DEXTROSE 50% IN WATER 50 ML VIAL(D50) IV PUSH PRN ×2 (05:30→10:00)
[2018-04-05] MEDS ORDERED: BISACODYL 10 MG SUPP RECTAL PRN (05:30)
[2018-04-05] MEDS ORDERED: NALOXONE HCL 0.4 MG/ML AMP IV PUSH PRN (05:30)
[2018-04-05] MEDS ORDERED: MAGNESIUM HYDROXIDE SUSP 30 ML CUP PO PRN (05:30)
[2018-04-05] MEDS ORDERED: SODIUM CHLORIDE 0.9% FLUSH 10 ML FLUSH IV FLUSH PRN (05:30)
[2018-04-05] MEDS ORDERED: GLUCAGON 1 MG/ML VIAL OTHER PRN ×2 (05:30→10:00)
[2018-04-05 06:00] VITALS: BP 163/72; PULSE 56; RESP 18; O2SAT 96
[2018-04-05] MEDS ORDERED: INSULIN ASPART SUPPLEMENTAL SCALE SQ SCH (08:00)
[2018-04-05 08:45] LABS: BILIRUBIN, URINE NEG (NEG); BLOOD, URINE TRACE (NEG); GLUCOSE,URINE 300 mg/dL (NEG); HYALINE CAST, URINE 2 /lpf (RARE); KETONE, URINE NEG (NEG); MUCUS URINE FEW /lpf (OCC); NITRITE,URINE NEG (NEG); PH, URINE 5.5 (5.0-8.5); SQUAMOUS EPITHELIAL CELL URINE 1 /hpf (0-5); URINE COLOR YELLOW (YELLW/STRAW); URINE LEUKOCYTE ESTERASE TRACE (NEG)
[2018-04-05] MEDS ORDERED: SODIUM CHLORIDE 0.9% FLUSH 10 ML FLUSH IV FLUSH SCH (09:00)
--- NOTE | 2018-04-05 09:03 | HHI.HP ---
HPI Service [facility] Primary Care Physician Angel Ahumada M.D. Admission Diagnosis bradycardia trop 0.12 Diagnoses: Chief Complaint: weakness, dizziness Travel History International Travel<30 Days: No Contact w/Intl Traveler <30 Da: No Traveled to Known Affected Are: No History of Present Illness 77-year-old female with a PMH of HTN, Hyperlipidemia, CAD s/p Cardiac Stent, Bradycardia not on beta sherley, h/o CVA and IDDM came to ER for further evaluation of dizziness, weakness, sob. Patient is having generalized weakness, dizziness for over a week. Has a hx of bradycardia Holter last week shows HR 30 -70 and sinus pauses. She is told she needs a PPM . Pt was just recently returned from [facility] and comes straight to ER for weakness, hypotension and bradycardia . She feels dizziness, lightheaded and SOB at time . Gets dizzy on standing as well. Says she is feeing a little imprpved now and she is eating breakfast. No chest pain. No n/v/d/c. No fever or chills. She is not coughing. No wheezing. Feels a little better . Speaks Urdu and also [place]. Daughter at bedside who si a physician in [facility] also healing with history. Review of Systems Except as stated in HPI: all other systems reviewed are Neg Past Family Social History Past Medical History HTN, Hyperlipidemia, CAD s/p Cardiac Stent, h/o CVA and DM Past Surgical History Cardiac Catheterization, Hysterectomy Reported Medications Reported Meds & Active Scripts Active Lantus Inj (Insulin Glargine) 1,000 Unit/10 Ml Vial 30 Units SQ BID Insulin Syringe/U-100/31G X 03/27" 1 ml 31 Gauge X /16" Mis Ea .ROUTE DIRECTED Novolog Inj (Insulin Aspart) 1,000 Unit/10 Ml Vial 2-12 Units SQ ACHS Max dose at bedtime ( ) units; sugars less than 70,(0) units; sugars 150-199,(2) units; sugars 200-249,(4) units; sugars 250-299,(7) units; sugars 300-349,(10) units; sugars greater than 349,(12)units Norvasc (Amlodipine Besylate) 10 Mg Tab 10 Mg PO DAILY Pravachol (Pravastatin) 40 Mg Tab 40 Mg PO DAILY Reported Allopurinol 100 Mg Tab 100 Mg PO DAILY Aspirin Low Dose (Aspirin) 81 Mg Chew 81 Mg CHEW DAILY Omeprazole 40 Mg Cap 40 Mg PO DAILY Glucophage (Metformin HCl) 1,000 Mg Tab 1,000 Mg PO DAILY With a meal Nitroglycerin SL (Nitroglycerin) 0.4 Mg Subl 0.4 Mg SL DIRECTED PRN ONE TABLET UNDER THE TONGUE NEEDED FOR CHEST PAIN, MAY REPEAT EVERY FIVE MINUTES FOR A TOTAL OF 3 DOSES OR CALL 911 IF NO RELIEF Allergies: Coded Allergies: latex (Verified Allergy, Intermediate, blisters , 04/05/18) Uncoded Allergies: ANESTHETICS (Allergy, Unknown, 04/04/18) Family History Reviewed. No h/o DM or CAD Social History Denies alcohol, tobacco or illicit drug use. Physical Exam Vital Signs Vital Signs Date Time Temp Pulse Resp B/P (MAP) Pulse Ox O2 Delivery O2 Flow Rate FiO2 04/05/18 06:00 56 18 163/72 (102) 96 Room Air 04/05/18 04:00 58 16 163/78 (106) 96 Room Air 04/04/18 21:13 98.8 74 16 164/81 (108) 97 Physical Exam GENERAL: This is a well-nourished, well-developed patient, in no apparent distress. SKIN: No rashes, ecchymoses or lesions. Cool and dry. HEAD: Atraumatic. Normocephalic. No temporal or scalp tenderness. EYES: Pupils equal round and reactive. Extraocular motions intact. No scleral icterus. No injection or drainage. ENT: Nose without bleeding, purulent drainage or septal hematoma. Throat without erythema, tonsillar hypertrophy or exudate. Uvula midline. Airway patent. NECK: Trachea midline. No JVD or lymphadenopathy. Supple, nontender, no meningeal signs. CARDIOVASCULAR: Bradycardic. Regular rate and rhythm without murmurs, gallops, or rubs. RESPIRATORY: Clear to auscultation. Breath sounds equal bilaterally. No wheezes , rales, or rhonchi. GASTROINTESTINAL: Abdomen soft, non-tender, nondistended. No hepato-splenomegaly , or palpable masses. No guarding. MUSCULOSKELETAL: Extremities without clubbing, cyanosis, or edema. No joint tenderness, effusion, or edema noted. No calf tenderness. Negative Homans sign bilaterally. NEUROLOGICAL: Awake and alert. Cranial nerves II through XII intact. Motor and sensory grossly within normal limits. Five out of 5 muscle strength in all muscle groups. Normal speech. Laboratory Laboratory Tests Test 04/05/18 02:37 04/05/18 08:20 White Blood Count 8.1 Red Blood Count 3.85 Hemoglobin 12.2 Hematocrit 37.5 Mean Corpuscular Volume 97.4 Mean Corpuscular Hemoglobin 31.8 Mean Corpuscular Hemoglobin Concent 32.6 Red Cell Distribution Width 15.0 Platelet Count 231 Mean Platelet Volume 9.4 Neutrophils (%) (Auto) 57.7 Lymphocytes (%) (Auto) 28.0 Monocytes (%) (Auto) 8.3 Eosinophils (%) (Auto) 5.1 Basophils (%) (Auto) 0.9 Neutrophils # (Auto) 4.7 Lymphocytes # (Auto) 2.3 Monocytes # (Auto) 0.7 Eosinophils # (Auto) 0.4 Basophils # (Auto) 0.1 CBC Comment DIFF FINAL Differential Comment Blood Urea Nitrogen 31 Creatinine 1.59 Random Glucose 282 Total Protein 7.5 Albumin 3.6 Calcium Level 9.2 Alkaline Phosphatase 109 Aspartate Amino Transf (AST/SGOT) 32 Alanine Aminotransferase (ALT/SGPT) 35 Total Bilirubin 0.2 Sodium Level 144 Potassium Level 4.8 Chloride Level 110 Carbon Dioxide Level 24.8 Anion Gap 9 Estimat Glomerular Filtration Rate 31 Troponin I 0.12 Lipase 205 Urine Color YELLOW Urine Turbidity CLEAR Urine pH 5.5 Urine Specific [place] 1.015 Urine Protein 100 Urine Glucose (UA) 300 Urine Ketones NEG Urine Occult Blood TRACE Urine Nitrite NEG Urine Bilirubin NEG Urine Urobilinogen LESS THAN 2.0 Urine Leukocyte Esterase TRACE Urine RBC 1 Urine WBC 2 Urine Squamous Epithelial Cells 1 Urine Hyaline Casts 2 Urine Mucus FEW Microscopic Urinalysis Comment CULT NOT INDICATED Result Diagram: 04/05/18 0237 04/05/18 0237 Imaging Last Impressions Chest X-Ray 04/05/18 0000 Signed Impressions: CONCLUSION: Minimal linear atelectasis or consolidation at the left lateral base. Caprini VTE Risk Assessment Caprini VTE Risk Assessment: Mod/High Risk (score >= 2) Caprini Risk Assessment Model Point Value = 1 Point Value = 2 Point Value = 3 Point Value = 5 Age 41-60 Minor surgery BMI > 25 kg/m2 Swollen legs Varicose veins or History of unexplained or recurrent spontaneous Oral contraceptives or hormone replacement Sepsis (< 1 month) Serious lung disease, including pneumonia (< 1 month) Abnormal pulmonary function Acute myocardial infarction Congestive heart failure (< 1 month) History of inflammatory bowel disease Medical patient at bed rest Age 61-74 Arthroscopic surgery Major open surgery (> 45 min) Laparoscopic surgery (> 45 min) Malignancy Confined to bed (> 72 hours) Immobilizing plaster cast Central venous access Age >= 75 History of VTE Family history of VTE Factor V Leiden Prothrombin [id number] Lupus anticoagulant Anticardiolipin antibodies Elevated serum homocysteine Heparin-induced thrombocytopenia Other congenital or acquired thrombophilia Stroke (< 1 month) Elective arthroplasty Hip, pelvis, or leg fracture Acute spinal cord injury (< 1 month) Prophylaxis Regimen Total Risk Factor Score Risk Level Prophylaxis Regimen 0-1 Low Early ambulation 2 Moderate Order ONE of the following: *Sequential Compression Device (SCD) *Heparin 5000 units SQ BID 3-4 Higher Order ONE of the following medications: *Heparin 5000 units SQ TID *Enoxaparin/Lovenox 40 mg SQ daily (WT < 150 kg, CrCl > 30 mL/min) *Enoxaparin/Lovenox 30 mg SQ daily (WT < 150 kg, CrCl > 10-29 mL/min) *Enoxaparin/Lovenox 30 mg SQ BID (WT < 150 kg, CrCl > 30 mL/min) AND/OR *Sequential Compression Device (SCD) 5 or more Highest Order ONE of the following medications: *Heparin 5000 units SQ TID (Preferred with Epidurals) *Enoxaparin/Lovenox 40 mg SQ daily (WT < 150 kg, CrCl > 30 mL/min) *Enoxaparin/Lovenox 30 mg SQ daily (WT < 150 kg, CrCl > 10-29 mL/min) *Enoxaparin/Lovenox 30 mg SQ BID (WT < 150 kg, CrCl > 30 mL/min) AND *Sequential Compression Device (SCD) Assessment and Plan Assessment and Plan Symptomatic Bradycardia : Monitor on telemetry. Will consult cardiology for evaluation. Patient is not on beta sherley. Consult cardiology for evaluation. Patient might need PM. Elevated Trop: Possibly related to renal dysfunction however R/o ACS. Trop 0.11 , will trend. Resume home ASA, Statin. EKG reviewed no acute changes. CXR with atelectasis left lateral lung. No cough . Add IS. Monitor for signs of infection Renal Insufficiency: Cr appears at baseline . Check UA. IVF for hydration, repeat labs in am. Hold Lasix for now. HTN: monitor, resume home medications. IDDM: uncontrolled with BS in 500s on admission. Sliding scale w/ Accu-Cheks. Restart home insulin levemir 30 U BID, monitor BS and adjust as indicated. DVT Prophylaxis: Heparin sq/ SCD/TEDs Discussed Condition With pt, nurse Claire Esqueda MD April 05, 2018 09:03
[2018-04-05] MEDS ORDERED: IPRA17I INH (09:23)
[2018-04-05] MEDS ORDERED: INSU1INJ5 SQ (09:23)
[2018-04-05] MEDS ORDERED: ATOR40TA16 PO (09:23)
[2018-04-05] MEDS ORDERED: LOSA50TA PO (09:23)
[2018-04-05] MEDS ORDERED: NITROGLYCERIN 0.4 MG SL 25 TABS/BTL SL PRN (10:00)
[2018-04-05 10:32] VITALS: BP 157/68; PULSE 71; RESP 21; O2SAT 97
[2018-04-05] MEDS ORDERED: RESP: ALBUTEROL 2.5 MG/IPRATROPIUM 0.5 MG NEB (PRN) NEB (11:30)
--- NOTE | 2018-04-05 12:02 | PD.CONS ---
HPI Service cardiology Consult Requested By Reason for Consult bradycardia Primary Care Physician Angel Ahumada M.D. History of Present Illness This is a 77 yo moroccan-speaking F with history of HTN, HLD, CAD, CVA, insulin- dependent diabetes and bradycardia who presents for evaluation of symptomatic bradycardia. She is accompanied by her somali-speaking daughter who provides most of the history along with medical records from recent inpatient stay in [facility]. Patient was apparently hospitalized in [facility] earlier this month for chest pain; she was found to be bradycardic and had 24 hour holter on shows sinus pauses x 2 of ~ 2.5 seconds. Her daughter provides a recent echo but the report is in moroccan; EF appears to be normal. Patient was seen at this hospital last year for chest pain and underwent cardiac catheterization showing mild non-obstructive CAD. Patient was set to have a pacemaker placed while hospitalized this month but it was cancelled as hospital could not get a hold of [facility] records from her 2017 stay. Her daughter has flown herself and patient back to [facility] (where patient resides) to have her bradycardia addressed. Daughter states patient has been lightheaded and dizzy for about one month, symptoms worse with exertion. She has not been on any AV jo blocking agents. She reports feeling mild anterior chest pain and SOB yesterday. glucose levels have been elevated. Troponin level x 1 is mildly elevated @ 0.12 and appears chronically elevated. Review of telemetry shows HR ranging from 44-70 bpm overnight. (Isa Schmidt) Review of Systems Consitutional: COMPLAINS OF: Fatigue, DENIES: Fever, Chills, Weight gain, Weight loss Respiratory: COMPLAINS OF: See HPI, Shortness of breath, DENIES: Cough, Snoring , Wheezing, Sputum production Cardiovascular: COMPLAINS OF: See HPI, Chest pain, DENIES: Palpitations, Syncope, Tachycardia Gastrointestinal: DENIES: Nausea, Vomiting, Change in bowel habits, Reflux, Bloody stools, Melena (Isa Schmidt) Past Family Social History Allergies: Coded Allergies: latex (Verified Allergy, Intermediate, blisters , 04/05/18) Uncoded Allergies: ANESTHETICS (Allergy, Unknown, 04/04/18) Past Medical History HTN, Hyperlipidemia, CAD s/p Cardiac Stent, h/o CVA and DM Past Surgical History Cardiac Catheterization, Hysterectomy Reported Medications Reported Meds & Active Scripts Active Insulin Syringe/U-100/31G X 03/27" 1 ml 31 Gauge X 03/27" Mis Ea .ROUTE DIRECTED Novolog Inj (Insulin Aspart) 1,000 Unit/10 Ml Vial 2-12 Units SQ ACHS Max dose at bedtime ( ) units; sugars less than 70,(0) units; sugars 150-199,(2) units; sugars 200-249,(4) units; sugars 250-299,(7) units; sugars 300-349,(10) units; sugars greater than 349,(12)units Norvasc (Amlodipine Besylate) 10 Mg Tab 10 Mg PO DAILY Reported Losartan (Losartan Potassium) 50 Mg Tab 50 Mg PO BID Atrovent HFA 12.9 GM Inh (Ipratropium Lyndon) 17 Mcg/Actuation Aer 2 Puff INH BID Levemir Flextouch Pen Inj (Insulin Detemir) 300 unit/3 ML Pen 30 Units SQ BID Atorvastatin (Atorvastatin Calcium) 40 Mg Tab 40 Mg PO HS Allopurinol 100 Mg Tab 100 Mg PO DAILY Aspirin Low Dose (Aspirin) 81 Mg Chew 81 Mg CHEW DAILY Omeprazole 40 Mg Cap 40 Mg PO DAILY Nitroglycerin SL (Nitroglycerin) 0.4 Mg Subl 0.4 Mg SL DIRECTED PRN ONE TABLET UNDER THE TONGUE NEEDED FOR CHEST PAIN, MAY REPEAT EVERY FIVE MINUTES FOR A TOTAL OF 3 DOSES OR CALL 911 IF NO RELIEF Active Ordered Medications Current Medications Medications (Trade) Dose Ordered Sig/Barrett Route Start Time Stop Time Status Last Admin (NS Flush) 2 ml UNSCH PRN IV FLUSH 04/05/18 05:30 (NS Flush) 2 ml BID IV FLUSH 04/05/18 09:00 04/05/18 09:18 (Tylenol) 650 mg Q4H PRN PO 04/05/18 05:30 (Narcan Inj) 0.4 mg UNSCH PRN IV PUSH 04/05/18 05:30 (Milk Of Magnesia Liq) 30 ml Q12H PRN PO 04/05/18 05:30 (Senokot) 17.2 mg Q12H PRN PO 04/05/18 05:30 (Dulcolax Supp) 10 mg DAILY PRN RECTAL 04/05/18 05:30 (Lactulose Liq) 30 ml DAILY PRN PO 04/05/18 05:30 (Zyloprim) 100 mg DAILY PO 04/06/18 09:00 (Norvasc) 10 mg DAILY PO 04/06/18 09:00 (Aspirin Chew) 81 mg DAILY CHEW 04/06/18 09:00 (Lipitor) 40 mg HS PO 04/05/18 21:00 (Spiriva Inh) 18 mcg DAILY INH 04/06/18 09:00 (Cozaar) 50 mg BID PO 04/05/18 21:00 (Levemir Inj) 30 units BID SQ 04/05/18 21:00 (Protonix) 40 mg DAILY PO 04/06/18 09:00 (D50w (Vial) Inj) 50 ml UNSCH PRN IV PUSH 04/05/18 10:00 (Glucagon Inj) 1 mg UNSCH PRN OTHER 04/05/18 10:00 (NovoLOG SUPPLEMENTAL SCALE) 1 ACHS SLIDING SCALE SQ 04/05/18 12:00 (Nitrostat Sl) 0.4 mg Q5M PRN SL 04/05/18 10:00 (Duoneb Neb) 1 ampule Q4HR NEB PRN NEB 04/05/18 11:30 (Heparin Inj) 5,000 units Q12HR SQ 04/05/18 21:00 Family History Reviewed. No h/o DM or CAD Social History Denies alcohol, tobacco or illicit drug use. (Isa Schmidt) Physical Exam Vital Signs Vital Signs Date Time Temp Pulse Resp B/P (MAP) Pulse Ox O2 Delivery O2 Flow Rate FiO2 04/05/18 10:32 71 21 157/68 (97) 97 Room Air 04/05/18 06:00 56 18 163/72 (102) 96 Room Air 04/05/18 04:00 58 16 163/78 (106) 96 Room Air 04/04/18 21:13 98.8 74 16 164/81 (108) 97 Physical Exam GENERAL: SKIN: Warm and dry. HEAD: Atraumatic. Normocephalic. EYES: Pupils equal and round. No scleral icterus. No injection or drainage. ENT: No nasal bleeding or discharge. Mucous membranes pink and moist. NECK: Trachea midline. No JVD. CARDIOVASCULAR: Regular rate and rhythm. no murmurs RESPIRATORY: No accessory muscle use. Clear to auscultation. Breath sounds equal bilaterally. GASTROINTESTINAL: Abdomen soft, non-tender, nondistended. . MUSCULOSKELETAL: Extremities without clubbing, cyanosis, or edema. No obvious deformities. NEUROLOGICAL: Awake and alert. No obvious cranial nerve deficits. Normal speech. PSYCHIATRIC: Appropriate mood and affect; insight and judgment normal. Laboratory Laboratory Tests Test 04/05/18 02:37 04/05/18 08:20 White Blood Count 8.1 Red Blood Count 3.85 Hemoglobin 12.2 Hematocrit 37.5 Mean Corpuscular Volume 97.4 Mean Corpuscular Hemoglobin 31.8 Mean Corpuscular Hemoglobin Concent 32.6 Red Cell Distribution Width 15.0 Platelet Count 231 Mean Platelet Volume 9.4 Neutrophils (%) (Auto) 57.7 Lymphocytes (%) (Auto) 28.0 Monocytes (%) (Auto) 8.3 Eosinophils (%) (Auto) 5.1 Basophils (%) (Auto) 0.9 Neutrophils # (Auto) 4.7 Lymphocytes # (Auto) 2.3 Monocytes # (Auto) 0.7 Eosinophils # (Auto) 0.4 Basophils # (Auto) 0.1 CBC Comment DIFF FINAL Differential Comment Blood Urea Nitrogen 31 Creatinine 1.59 Random Glucose 282 Total Protein 7.5 Albumin 3.6 Calcium Level 9.2 Alkaline Phosphatase 109 Aspartate Amino Transf (AST/SGOT) 32 Alanine Aminotransferase (ALT/SGPT) 35 Total Bilirubin 0.2 Sodium Level 144 Potassium Level 4.8 Chloride Level 110 Carbon Dioxide Level 24.8 Anion Gap 9 Estimat Glomerular Filtration Rate 31 Troponin I 0.12 Lipase 205 Urine Color YELLOW Urine Turbidity CLEAR Urine pH 5.5 Urine Specific [place] 1.015 Urine Protein 100 Urine Glucose (UA) 300 Urine Ketones NEG Urine Occult Blood TRACE Urine Nitrite NEG Urine Bilirubin NEG Urine Urobilinogen LESS THAN 2.0 Urine Leukocyte Esterase TRACE Urine RBC 1 Urine WBC 2 Urine Squamous Epithelial Cells 1 Urine Hyaline Casts 2 Urine Mucus FEW Microscopic Urinalysis Comment CULT NOT INDICATED (Isa Schmidt) Result Diagram: 04/05/18 0237 04/05/18 0237 Imaging Last 48 hours Impressions Chest X-Ray 04/05/18 0000 Signed Impressions: CONCLUSION: Minimal linear atelectasis or consolidation at the left lateral base. (Isa Schmidt) Assessment and Plan Problem List: (1) CAD (coronary artery disease) ICD Codes: I25.10 - Atherosclerotic heart disease of [place] coronary artery without angina pectoris (2) HTN (hypertension) ICD Codes: I10 - Essential (primary) hypertension Status: Chronic (3) Bradycardia ICD Codes: R00.1 - Bradycardia, unspecified Assessment and Plan 77 yo moroccan-speaking F with history of HTN, HLD, CAD, CVA, insulin-dependent diabetes and bradycardia who presents for evaluation of symptomatic bradycardia. She is accompanied by her somali-speaking daughter who provides most of the history along with medical records from recent inpatient stay in [facility]. Patient was apparently hospitalized in [facility] earlier this month for chest pain; she was found to be bradycardic and had 24 hour holter on shows sinus pauses x 2 of ~ 2.5 seconds. symptomatic bradycardia- review of tele shows HR ranging from 44-70bpm overnight. no AV jo blocking agents Dr. Rizvi to evaluate for possible pacemaker placement. CAD- 2016 cardiac catheterization shows mild non-obstructive CAD chest pain yesterday, trop elevated appears stable, will monitor trend obtain 12 lead EKG (Isa Schmidt) Assessment and Plan Patient seen and examined. Symptomatic bradycardia with fatigue, lightheadedness and dizziness for some time with HR 40s during waking hours. No chest pain or dyspnea. Discussed risks, benefits and alternatives of PPM placement at length with patient who wishes to proceed with implant. Will try to schedule for later today. (Jose Rizvi DO) Isa Schmidt April 05, 2018 12:02 Jose Rizvi DO April 05, 2018 13:07
[2018-04-05] MEDS ORDERED: POVIDONE IODINE 5% (ANTISEPSIS KIT) 4 APPLICATIONS EACH NARE SCH (13:15)
[2018-04-05] MEDS ORDERED: MUPIROCIN 2% OINT 1 APPLIC/GM SYR NASAL SCH (13:15)
[2018-04-05] MEDS ORDERED: VANCOMYCIN INJ 1,000 MG in SODIUM CHLOR 0.9% 250 ML INJ 250 ML IV SCH (13:15)
[2018-04-05] MEDS ORDERED: CHLORHEXIDINE GLUCONATE 2 % 1 PACK (2 CLOTHS) TOP SCH (13:15)
[2018-04-05 14:04] VITALS: BP 183/75; PULSE 68; RESP 14; TEMP 98.5; O2SAT 98
[2018-04-05] MEDS: INSULIN ASPART SUPPLEMENTAL SCALE SQ SCH ×2 (14:45→18:21)
[2018-04-05 15:14] VITALS: BP 177/66; PULSE 66; RESP 16; O2SAT 98
--- NOTE | 2018-04-05 16:07 | HHI.DCPOC ---
Discharge Care Plan Goals to Promote Your Health * To prevent worsening of your condition and complications * To maintain your health at the optimal level Directions to Meet Your Goals Take your medications as prescribed Follow your dietary instruction Follow activity as directed Keep your appointments as scheduled Take your immunizations and boosters as scheduled If your symptoms worsen call your PCP, if no PCP go to Urgent Care Center or Emergency Room Smoking is Dangerous to Your Health. Avoid second hand smoke Call the 24-hour hour crisis hotline for domestic abuse at Claire Esqueda MD April 05, 2018 16:07
--- NOTE | 2018-04-05 19:33 | EKG ---
Date Performed: 04/05/2018 Time Performed: 03:22:17 PTAGE: 77 years EKG: NORMAL Sinus rhythm WITH SINUS ARRHYTHMIA RIGHT BUNDLE BRANCH BLOCK NONSPECIFIC ST-T WAVE CHANGES ABNORMAL ECG Compared to PREVIOUS TRACING , the patient now has a right bundle branch block. PREVIOUS TRACING DOCTOR: Kiya Parra Interpretating Date/Time 04/05/2018 19:32:07
[2018-04-05] MEDS ORDERED: INSULIN DETEMIR 100 UNITS/ML VIAL SQ SCH (21:00)
[2018-04-05] MEDS ORDERED: ATORVASTATIN 40 MG TAB PO SCH (21:00)
[2018-04-05] MEDS ORDERED: LOSARTAN 50 MG TAB PO SCH (21:00)
[2018-04-05] MEDS ORDERED: HEPARIN SODIUM - SQ 10,000 UNITS/ML VIAL SQ SCH (21:00)
[2018-04-06] MEDS ORDERED: TIOTROPIUM BROMIDE 18 MCG INH INH SCH (09:00)
[2018-04-06] MEDS ORDERED: ALLOPURINOL 100 MG TAB PO SCH (09:00)
[2018-04-06] MEDS ORDERED: PANTOPRAZOLE SOD 40 MG DELAYED RELEASE TAB PO SCH (09:00)
[2018-04-06] MEDS ORDERED: ASPIRIN 81 MG CHEW TAB CHEW SCH (09:00)
== END 2018-04-05 18:48 | disposition home or self-care (01) | DRG 309 ==
LOC: NEPE 21:02 → NEDA 04-05 05:29 → OBSVTOIN 04-05 06:45 → NEDH 04-05 07:45 → N04A 04-05 15:56
PROVIDERS: ADMIT Internal Medicine; ATTEND Internal Medicine
DX: R00.1 Bradycardia, unspecified (principal); J98.11 Atelectasis; I95.9 Hypotension, unspecified; E11.65 Type 2 diabetes mellitus with hyperglycemia; I25.2 Old myocardial infarction; I25.10 Atherosclerotic heart disease of native coronary artery without angina pectoris; I10 Essential (primary) hypertension; N28.9 Disorder of kidney and ureter, unspecified; E78.5 Hyperlipidemia, unspecified; R53.1 Weakness; R42 Dizziness and giddiness; E78.00 Pure hypercholesterolemia, unspecified; Z79.4 Long term (current) use of insulin; Z86.73 Personal history of transient ischemic attack (TIA), and cerebral infarction without residual deficits; Z87.442 Personal history of urinary calculi; Z90.710 Acquired absence of both cervix and uterus; Z95.5 Presence of coronary angioplasty implant and graft
CPT/HCPCS: 71045; 80053; 81001; 83690; 84484; 85025; 93005; J1815

== ENCOUNTER → 2018-04-09 | Day surgery (SDC) | payer OTHER, MEDICAID ==
[~2018-04-09] MED LIST changes: +ATOR40TA16 PO; +CEPH-460 PO; -GLUC1000 PO; +INSU1INJ5 SQ; +IPRA17I INH; -LANTUS2P SQ; +LOSA50TA PO; -PRAV40TA PO
== END | disposition home or self-care (01) ==
LOC: HDOC 08:38
PROVIDERS: ATTEND Internal Medicine Cardiovascular Disease
DX: R00.1 Bradycardia, unspecified (principal)